=== PATIENT | male | born 1940 | race Asian ===

== ENCOUNTER 2018-08-21 09:30 | Outpatient (RCR) | payer MEDICARE, OTHER, SELFPAY ==
--- NOTE | 2018-08-12 07:41 | PT.OIE ---
Current Diagnoses Parkinson's disease (08/11/18) Provider Visit Care Team Role Provider Type Mark Ramsey MD Family Provider Physician Primary Care Provider Specialty: Family Practice Address: [address] [place], [address] Email: Cleopatra Ontiveros MD Attending Provider Non-Staff Specialty: Neurology Address: [facility] [place], [address] Email: Physical Therapy Initial Evaluation PT-OP-A Visit Information Start: 08/11/18 13:31 Freq: Status: Active Protocol: Document 08/11/18 09:30 AMB (Rec: 08/11/18 13:40 AMB [email or web address]) Out-Patient Physical Therapy Visit Information Visit Information Visit Type Initial Evaluation Visit Note G code 11/20 Visit Start Time 09:30 Visit Stop Time 10:30 Total Visit Minutes 60 Visit Number 1 Evaluation Information Evaluation Date 08/11/18 PT-OP-B Current Condition Start: 08/11/18 13:31 Freq: Status: Active Protocol: Document 08/11/18 09:30 AMB (Rec: 08/11/18 13:40 AMB [email or web address]) Current Condition History of Current Condition History of Current Condition The patient has been diagnosed with Parkinson's since 2016, noticing it mostly in the legs L>R. He lives with his and reports he is independent with all ADLs, he ambulates without asstive device. He does have some cardiac history with an ablation about 15 years ago with some residual shortness of breath. Otherwise he feels he is healthy. Prior Functional Status Baseline Function- ADL's Independent Baseline Function- Mobility Independent Baseline Function- Gait self reported mild SOB Personal Factors Other Personal Factors That May Effect Pt feels he is doing quite Therapy/Recovery well PT-OP-C Subjective Start: 08/11/18 13:31 Freq: Status: Active Protocol: Document 08/11/18 09:30 AMB (Rec: 08/12/18 07:34 AMB [email or web address]) OP-PT Subjective Patient Comments Patient Comments Pt states he is doing quite well, maybe his balance is not as good as it used to be. OP-PT Pain Assessment Comments Pain Comments Bilateral knee throbbing that comes and goes in the morning before getting out of bed, better with movement. PT-OP-D Balance Start: 08/11/18 13:31 Freq: Status: Active Protocol: Document 08/11/18 09:30 AMB (Rec: 08/11/18 16:14 AMB [email or web address]) Balance Tests Single Limb Standing Single Limb- Right 2 seconds Single Limb- Left 2 seconds Tandem Tandem Standing ankle sway with eyes closed 5 seconds PT-OP-E Functional Tests Start: 08/11/18 13:31 Freq: Status: Active Protocol: Document 08/11/18 09:30 AMB (Rec: 08/11/18 16:12 AMB [email or web address]) Functional Tests 6 Minute Walk Test Distance 1738 Device Used none Five Times Sit to Stand Test Score 7 seconds PT-OP-G Mobility & Gait Start: 08/11/18 13:31 Freq: Status: Active Protocol: Document 08/11/18 09:30 AMB (Rec: 08/12/18 07:34 AMB [email or web address]) OP Mobility Evaluation Bed Mobility Supine to and from Sit Independent OP Gait Assessment Comments Gait Comments Pt ambulates without AD. Good danette but decreased trunk rotation. PT-OP-H Neuro Start: 08/11/18 13:31 Freq: Status: Active Protocol: Document 08/11/18 09:30 AMB (Rec: 08/12/18 07:34 AMB [email or web address]) Coordination Evaluation Upper Extremity Tests Left Pronation/Supination Test Normal Performance Muscle Tone Tone Assessment Right Lower Extremity Flexor Tone Description Rigidity Left Lower Extremity Flexor Tone Description Rigidity Muscle Tone Comments No tremors, no clonus, rigidity worse on the left with hip, knee flexion PT-OP-J Posture/Palpation/Skin Start: 08/11/18 13:31 Freq: Status: Active Protocol: Document 08/11/18 09:30 AMB (Rec: 08/12/18 07:34 AMB [email or web address]) Posture Evaluation Comments Posture Comments Forward head, rounded shoulders. PT-OP-M Strength Start: 08/12/18 07:34 Freq: Status: Active Protocol: Document 08/11/18 09:30 AMB (Rec: 08/12/18 07:41 AMB [email or web address]) Hip Strength Hip Manual Muscle Testing Right Flexion (L2) 4+ Good+ Extension (S1) 4+ Good+ Abduction 4+ Good+ Left Flexion (L2) 4+ Good+ Extension (S1) 4+ Good+ Abduction 4+ Good+ Knee Strength Knee Manual Muscle Testing Right Flexion (S2) 5 Normal Extension (L3) 5 Normal Left Flexion (S2) 5 Normal Extension (L3) 5 Normal Ankle/Foot Strength Ankle and Foot Manual Muscle Testing Right Dorsiflexion (L4) 4+ Good+ Plantarflexion (S1) 4+ Good+ Left Dorsiflexion (L4) 4+ Good+ Plantarflexion (S1) 4+ Good+ PT-OP-Q Treatments Start: 08/11/18 13:31 Freq: Status: Active Protocol: Document 08/11/18 09:30 AMB (Rec: 08/11/18 16:10 AMB [email or web address]) Neuro Re-Education Treatment Balance Activities 2 Details Backward stepping with altenrating UE movement 1 Details Forward stepping with alternating UE movement PT-OP-T Assessment and Plan Start: 08/11/18 13:31 Freq: Status: Active Protocol: Document 08/11/18 09:30 AMB (Rec: 08/11/18 16:07 AMB [email or web address]) Physical Therapy Assessment Rehab Potential Rehabilitation Potential Good Evaluation Complexity Number of Personal Factors/Comorbidities 1-2 Number of Body Systems Impaired 1-2 Clinical Presentation at Evaluation Stable Impairments Impairments Balance Coordination Goals Two Impairment Coordination Short Term Goal (STG) The patient will be independent with his LSVT HEP. STG Duration 2 weeks Mcfp Goal (LTG) The patient will show appropriate dual tasking and alternating movement patterns in day to day tasks. LTG Duration 4 weeks One Impairment Balance Short Term Goal (STG) The patient will improve his single leg balance to 5 seconds bilaterally. STG Duration 2 weeks Educational Technologist Goal (LTG) The patient will score 24/24 on the DGI. LTG Duration 4 weeks Assessment Summary Assessment The patient's 6 minute walk test and 5x sit to stand were within functional limits. His high level balance and coordination was impaired. He does have tone and stiffness in his bilateral LEs worse in the left. He feels that his fine motor and UE function is WFL. He will benefit from the LSVT program to improve his dynamic balance, posture, and coordination. Physical Therapy Plan Frequency and Duration Frequency of Treatment 4x/Week Duration of Treatment 4 weeks Plan of Care Start Date 08/11/18 Plan of Care End Date 09/08/18 Therapeutic Interventions Therapeutic Interventions Balance Training Gait Training Home Exercise Program Neuromuscular Re-education Self-Care/Home Management Therapeutic Activities Therapeutic Exercises Next Visit Focus/Plan Next Note Type Treatment Note Next Visit Plan LSVT BIG
--- NOTE | 2018-08-12 07:42 | PT.OPPOC ---
Current Diagnoses Parkinson's disease (08/11/18) Provider Visit Care Team Role Provider Type Mark Ramsey MD Family Provider Physician Primary Care Provider Specialty: Family Practice Address: [address] [place], [address] Email: Cleopatra Ontiveros MD Attending Provider Non-Staff Specialty: Neurology Address: [facility] [place], [address] Email: Plan Of Care PT-OP-T Assessment and Plan Start: 08/11/18 13:31 Freq: Status: Active Protocol: Document 08/11/18 09:30 AMB (Rec: 08/11/18 16:07 AMB [email or web address]) Physical Therapy Assessment Rehab Potential Rehabilitation Potential Good Evaluation Complexity Number of Personal Factors/Comorbidities 1-2 Number of Body Systems Impaired 1-2 Clinical Presentation at Evaluation Stable Impairments Impairments Balance Coordination Goals Two Impairment Coordination Short Term Goal (STG) The patient will be independent with his LSVT HEP. STG Duration 2 weeks Alf Goal (LTG) The patient will show appropriate dual tasking and alternating movement patterns in day to day tasks. LTG Duration 4 weeks One Impairment Balance Short Term Goal (STG) The patient will improve his single leg balance to 5 seconds bilaterally. STG Duration 2 weeks Alf Goal (LTG) The patient will score 24/24 on the DGI. LTG Duration 4 weeks Assessment Summary Assessment The patient's 6 minute walk test and 5x sit to stand were within functional limits. His high level balance and coordination was impaired. He does have tone and stiffness in his bilateral LEs worse in the left. He feels that his fine motor and UE function is WFL. He will benefit from the LSVT program to improve his dynamic balance, posture, and coordination. Physical Therapy Plan Frequency and Duration Frequency of Treatment 4x/Week Duration of Treatment 4 weeks Plan of Care Start Date 08/11/18 Plan of Care End Date 09/08/18 Therapeutic Interventions Therapeutic Interventions Balance Training Gait Training Home Exercise Program Neuromuscular Re-education Self-Care/Home Management Therapeutic Activities Therapeutic Exercises Next Visit Focus/Plan Next Note Type Treatment Note Next Visit Plan LSVT BIG Plan of Care Dates Plan of Care Start Date 08/11/18 Plan of Care End Date 09/08/18 Please Sign and Return: I have reviewed this Plan of Care and certify that the skilled therapy services above are required to meet the patient?s needs. Physician Signature Date Printed Name and Credentials Clinical Instructor Signature Printed Name and Credentials
--- NOTE | 2018-08-12 16:30 | PT.OTN ---
Current Diagnoses Parkinson's disease (08/12/18) Physical Therapy Treatment Note PT-OP-A Visit Information Start: 08/11/18 13:31 Freq: Status: Active Protocol: Document 08/12/18 09:30 AMB (Rec: 08/12/18 10:28 AMB [id number]) Out-Patient Physical Therapy Visit Information Visit Information Visit Type Treatment Note Visit Note 12/21 Visit Start Time 09:30 Visit Stop Time 10:30 Total Visit Minutes 60 Visit Number 2 PT-OP-B Current Condition Start: 08/11/18 13:31 Freq: Status: Active Protocol: Document 08/11/18 09:30 AMB (Rec: 08/11/18 13:40 AMB [email or web address]) Current Condition History of Current Condition History of Current Condition The patient has been diagnosed with Parkinson's since 2015, noticing it mostly in the legs L>R. He lives with his and reports he is independent with all ADLs, he ambulates without assitive device. He does have some cardiac history with an ablation about 15 years ago with some residual shortness of breath. Otherwise he feels he is healthy. Prior Functional Status Baseline Function- ADL's Independent Baseline Function- Mobility Independent Baseline Function- Gait self reported mild SOB Personal Factors Other Personal Factors That May Effect Pt feels he is doing quite Therapy/Recovery well PT-OP-C Subjective Start: 08/11/18 13:31 Freq: Status: Active Protocol: Document 08/12/18 09:30 AMB (Rec: 08/12/18 10:28 AMB [email or web address]) OP-PT Subjective Patient Comments Patient Comments Pt notes R shoulder is a little sore, he did get PT for it earlier this year. PT-OP-D Balance Start: 08/11/18 13:31 Freq: Status: Active Protocol: Document 08/11/18 09:30 AMB (Rec: 08/11/18 16:14 AMB [email or web address]) Balance Tests Single Limb Standing Single Limb- Right 2 seconds Single Limb- Left 2 seconds Tandem Tandem Standing ankle sway with eyes closed 5 seconds PT-OP-E Functional Tests Start: 08/11/18 13:31 Freq: Status: Active Protocol: Document 08/11/18 09:30 AMB (Rec: 08/11/18 16:12 AMB [email or web address]) Functional Tests 6 Minute Walk Test Distance 1738 Device Used none Five Times Sit to Stand Test Score 7 seconds PT-OP-G Mobility & Gait Start: 08/11/18 13:31 Freq: Status: Active Protocol: Document 08/11/18 09:30 AMB (Rec: 08/12/18 07:34 AMB [email or web address]) OP Mobility Evaluation Bed Mobility Supine to and from Sit Independent OP Gait Assessment Comments Gait Comments Pt ambulates without AD. Good danette but decreased trunk rotation. PT-OP-H Neuro Start: 08/11/18 13:31 Freq: Status: Active Protocol: Document 08/11/18 09:30 AMB (Rec: 08/12/18 07:34 AMB [email or web address]) Coordination Evaluation Upper Extremity Tests Left Pronation/Supination Test Normal Performance Muscle Tone Tone Assessment Right Lower Extremity Flexor Tone Description Rigidity Left Lower Extremity Flexor Tone Description Rigidity Muscle Tone Comments No tremors, no clonus, rigidity worse on the left with hip, knee flexion PT-OP-J Posture/Palpation/Skin Start: 08/11/18 13:31 Freq: Status: Active Protocol: Document 08/11/18 09:30 AMB (Rec: 08/12/18 07:34 AMB [email or web address]) Posture Evaluation Comments Posture Comments Forward head, rounded shoulders. PT-OP-M Strength Start: 08/12/18 07:34 Freq: Status: Active Protocol: Document 08/11/18 09:30 AMB (Rec: 08/12/18 07:41 AMB [email or web address]) Hip Strength Hip Manual Muscle Testing Right Flexion (L2) 4+ Good+ Extension (S1) 4+ Good+ Abduction 4+ Good+ Left Flexion (L2) 4+ Good+ Extension (S1) 4+ Good+ Abduction 4+ Good+ Knee Strength Knee Manual Muscle Testing Right Flexion (S2) 5 Normal Extension (L3) 5 Normal Left Flexion (S2) 5 Normal Extension (L3) 5 Normal Ankle/Foot Strength Ankle and Foot Manual Muscle Testing Right Dorsiflexion (L4) 4+ Good+ Plantarflexion (S1) 4+ Good+ Left Dorsiflexion (L4) 4+ Good+ Plantarflexion (S1) 4+ Good+ PT-OP-Q Treatments Start: 08/11/18 13:31 Freq: Status: Active Protocol: Document 08/12/18 09:30 AMB (Rec: 08/12/18 16:30 AMB [email or web address]) Gym Equipment Shuttle Balance 1 Details RED Comments difficult, pt tends to WB on heels and lose balance posteriorly Neuro Re-Education Treatment Balance Activities 6 Details single leg stance Reps/Duration 3 sec max, better with cues to spot 5 Details WBOS Comments trunk rotation 4 Details Rock and reach 3 Details Side stepping Comments no Ue support 2 Details Backward stepping with alternating UE movement Comments no UE support 1 Details Forward stepping with alternating UE movement Comments no UE support Coordination Activities 2 Details Seated trunk rotation with UE reach Reps/Duration 10 1 Details Seated forward flexion with horizontal abduction Reps/Duration 10 Other Activities 1 Details sit to stand Reps/Duration 10 Comments blue foam PT-OP-T Assessment and Plan Start: 08/11/18 13:31 Freq: Status: Active Protocol: Document 08/12/18 09:30 AMB (Rec: 08/12/18 10:30 AMB [email or web address]) Physical Therapy Assessment Assessment Summary Assessment Pt did well with DGI, vc to slow down with exercises for better form. Physical Therapy Plan Next Visit Focus/Plan Next Note Type Treatment Note Next Visit Plan Progress dynamic balance
--- NOTE | 2018-08-13 10:43 | PT.OTN ---
Current Diagnoses Parkinson's disease (08/13/18) Physical Therapy Treatment Note PT-OP-A Visit Information Start: 08/11/18 13:31 Freq: Status: Active Protocol: Document 08/13/18 09:30 AMB (Rec: 08/13/18 10:42 AMB [email or web address]) Out-Patient Physical Therapy Visit Information Visit Information Visit Type Treatment Note Visit Note 01/18 Visit Start Time 09:45 Visit Stop Time 10:30 Total Visit Minutes 45 Visit Number 3 Evaluation Information Evaluation Date 08/11/18 PT-OP-B Current Condition Start: 08/11/18 13:31 Freq: Status: Active Protocol: Document 08/11/18 09:30 AMB (Rec: 08/11/18 13:40 AMB [email or web address]) Current Condition History of Current Condition History of Current Condition The patient has been diagnosed with Parkinson's since 2015, noticing it mostly in the legs L>R. He lives with his and reports he is independent with all ADLs, he ambulates without asstive device. He does have some cardiac history with an ablation about 15 years ago with some residual shortness of breath. Otherwise he feels he is healthy. Prior Functional Status Baseline Function- ADL's Independent Baseline Function- Mobility Independent Baseline Function- Gait self reported mild SOB Personal Factors Other Personal Factors That May Effect Pt feels he is doing quite Therapy/Recovery well PT-OP-C Subjective Start: 08/11/18 13:31 Freq: Status: Active Protocol: Document 08/13/18 09:30 AMB (Rec: 08/13/18 10:42 AMB [email or web address]) OP-PT Subjective Patient Comments Patient Comments Pt notes knees are a little sore from exercises yesterday. PT-OP-D Balance Start: 08/11/18 13:31 Freq: Status: Active Protocol: Document 08/11/18 09:30 AMB (Rec: 08/11/18 16:14 AMB [email or web address]) Balance Tests Single Limb Standing Single Limb- Right 2 seconds Single Limb- Left 2 seconds Tandem Tandem Standing ankle sway with eyes closed 5 seconds PT-OP-E Functional Tests Start: 08/11/18 13:31 Freq: Status: Active Protocol: Document 08/11/18 09:30 AMB (Rec: 08/11/18 16:12 AMB [email or web address]) Functional Tests 6 Minute Walk Test Distance 1738 Device Used none Five Times Sit to Stand Test Score 7 seconds PT-OP-G Mobility & Gait Start: 08/11/18 13:31 Freq: Status: Active Protocol: Document 08/11/18 09:30 AMB (Rec: 08/12/18 07:34 AMB [email or web address]) OP Mobility Evaluation Bed Mobility Supine to and from Sit Independent OP Gait Assessment Comments Gait Comments Pt ambulates without AD. Good danette but decreased trunk rotation. PT-OP-H Neuro Start: 08/11/18 13:31 Freq: Status: Active Protocol: Document 08/11/18 09:30 AMB (Rec: 08/12/18 07:34 AMB [email or web address]) Coordination Evaluation Upper Extremity Tests Left Pronation/Supination Test Normal Performance Muscle Tone Tone Assessment Right Lower Extremity Flexor Tone Description Rigidity Left Lower Extremity Flexor Tone Description Rigidity Muscle Tone Comments No tremors, no clonus, rigidity worse on the left with hip, knee flexion PT-OP-J Posture/Palpation/Skin Start: 08/11/18 13:31 Freq: Status: Active Protocol: Document 08/11/18 09:30 AMB (Rec: 08/12/18 07:34 AMB [email or web address]) Posture Evaluation Comments Posture Comments Forward head, rounded shoulders. PT-OP-M Strength Start: 08/12/18 07:34 Freq: Status: Active Protocol: Document 08/11/18 09:30 AMB (Rec: 08/12/18 07:41 AMB [email or web address]) Hip Strength Hip Manual Muscle Testing Right Flexion (L2) 4+ Good+ Extension (S1) 4+ Good+ Abduction 4+ Good+ Left Flexion (L2) 4+ Good+ Extension (S1) 4+ Good+ Abduction 4+ Good+ Knee Strength Knee Manual Muscle Testing Right Flexion (S2) 5 Normal Extension (L3) 5 Normal Left Flexion (S2) 5 Normal Extension (L3) 5 Normal Ankle/Foot Strength Ankle and Foot Manual Muscle Testing Right Dorsiflexion (L4) 4+ Good+ Plantarflexion (S1) 4+ Good+ Left Dorsiflexion (L4) 4+ Good+ Plantarflexion (S1) 4+ Good+ PT-OP-Q Treatments Start: 08/11/18 13:31 Freq: Status: Active Protocol: Document 08/13/18 09:30 AMB (Rec: 08/13/18 10:42 AMB [email or web address]) Gym Equipment Shuttle Balance 1 Details RED Comments difficult, pt tends to WB on heels and lose balance posteriorly Therapeutic Activity Therapeutic Activity 1 Name handwriting Comments lined paper, forearm support , large pen, taking breaks to stretch out hand. Neuro Re-Education Treatment Balance Activities 6 Details single leg stance Reps/Duration 3 sec max, better with cues to spot Comments added vertical head turns 5 Details WBOS Comments trunk rotation 4 Details Rock and reach Reps/Duration 12x2 3 Details Side stepping Reps/Duration 10x2 Comments no Ue support 2 Details Backward stepping with alternating UE movement Reps/Duration 10x2 Comments no UE support 1 Details Forward stepping with alternating UE movement Reps/Duration 10x2 Comments no UE support Coordination Activities 2 Details Seated trunk rotation with UE reach Reps/Duration 10 1 Details Seated forward flexion with horizontal abduction Reps/Duration 10 Other Activities 1 Details sit to stand Reps/Duration 10 Comments blue foam, from low surface PT-OP-T Assessment and Plan Start: 08/11/18 13:31 Freq: Status: Active Protocol: Document 08/13/18 09:30 AMB (Rec: 08/13/18 10:42 AMB [email or web address]) Physical Therapy Assessment Assessment Summary Assessment Pt has noticed decreased size of writing if he writes for awhile, advised in compensation techniques. Improving dynamic balance. Physical Therapy Plan Frequency and Duration Frequency of Treatment 4x/Week Duration of Treatment 4 weeks Plan of Care Start Date 08/11/18 Plan of Care End Date 09/08/18 Next Visit Focus/Plan Next Note Type Treatment Note Next Visit Plan Progress balance, fine motor
--- NOTE | 2018-08-14 15:55 | PT.OTN ---
Current Diagnoses Parkinson's disease (08/14/18) Physical Therapy Treatment Note PT-OP-A Visit Information Start: 08/11/18 13:31 Freq: Status: Active Protocol: Document 08/14/18 09:30 AMB (Rec: 08/14/18 09:35 AMB [email or web address]) Out-Patient Physical Therapy Visit Information Visit Information Visit Type Treatment Note Visit Note 02/18 Visit Start Time 09:30 Visit Stop Time 10:30 Total Visit Minutes 60 Visit Number 4 PT-OP-B Current Condition Start: 08/11/18 13:31 Freq: Status: Active Protocol: Document 08/11/18 09:30 AMB (Rec: 08/11/18 13:40 AMB [email or web address]) Current Condition History of Current Condition History of Current Condition The patient has been diagnosed with Parkinson's since 2015, noticing it mostly in the legs L>R. He lives with his and reports he is independent with all ADLs, he ambulates without asstive device. He does have some cardiac history with an ablation about 15 years ago with some residual shortness of breath. Otherwise he feels he is healthy. Prior Functional Status Baseline Function- ADL's Independent Baseline Function- Mobility Independent Baseline Function- Gait self reported mild SOB Personal Factors Other Personal Factors That May Effect Pt feels he is doing quite Therapy/Recovery well PT-OP-C Subjective Start: 08/11/18 13:31 Freq: Status: Active Protocol: Document 08/14/18 09:30 AMB (Rec: 08/14/18 09:35 AMB [email or web address]) OP-PT Subjective Patient Comments Patient Comments Pt notes lower leg issues have not been as bad as far as waking up early. PT-OP-D Balance Start: 08/11/18 13:31 Freq: Status: Active Protocol: Document 08/11/18 09:30 AMB (Rec: 08/11/18 16:14 AMB [email or web address]) Balance Tests Single Limb Standing Single Limb- Right 2 seconds Single Limb- Left 2 seconds Tandem Tandem Standing ankle sway with eyes closed 5 seconds PT-OP-E Functional Tests Start: 08/11/18 13:31 Freq: Status: Active Protocol: Document 08/11/18 09:30 AMB (Rec: 08/11/18 16:12 AMB [email or web address]) Functional Tests 6 Minute Walk Test Distance 1738 Device Used none Five Times Sit to Stand Test Score 7 seconds PT-OP-G Mobility & Gait Start: 08/11/18 13:31 Freq: Status: Active Protocol: Document 08/11/18 09:30 AMB (Rec: 08/12/18 07:34 AMB [email or web address]) OP Mobility Evaluation Bed Mobility Supine to and from Sit Independent OP Gait Assessment Comments Gait Comments Pt ambulates without AD. Good danette but decreased trunk rotation. PT-OP-H Neuro Start: 08/11/18 13:31 Freq: Status: Active Protocol: Document 08/11/18 09:30 AMB (Rec: 08/12/18 07:34 AMB [email or web address]) Coordination Evaluation Upper Extremity Tests Left Pronation/Supination Test Normal Performance Muscle Tone Tone Assessment Right Lower Extremity Flexor Tone Description Rigidity Left Lower Extremity Flexor Tone Description Rigidity Muscle Tone Comments No tremors, no clonus, rigidity worse on the left with hip, knee flexion PT-OP-J Posture/Palpation/Skin Start: 08/11/18 13:31 Freq: Status: Active Protocol: Document 08/11/18 09:30 AMB (Rec: 08/12/18 07:34 AMB [email or web address]) Posture Evaluation Comments Posture Comments Forward head, rounded shoulders. PT-OP-M Strength Start: 08/12/18 07:34 Freq: Status: Active Protocol: Document 08/11/18 09:30 AMB (Rec: 08/12/18 07:41 AMB [email or web address]) Hip Strength Hip Manual Muscle Testing Right Flexion (L2) 4+ Good+ Extension (S1) 4+ Good+ Abduction 4+ Good+ Left Flexion (L2) 4+ Good+ Extension (S1) 4+ Good+ Abduction 4+ Good+ Knee Strength Knee Manual Muscle Testing Right Flexion (S2) 5 Normal Extension (L3) 5 Normal Left Flexion (S2) 5 Normal Extension (L3) 5 Normal Ankle/Foot Strength Ankle and Foot Manual Muscle Testing Right Dorsiflexion (L4) 4+ Good+ Plantarflexion (S1) 4+ Good+ Left Dorsiflexion (L4) 4+ Good+ Plantarflexion (S1) 4+ Good+ PT-OP-Q Treatments Start: 08/11/18 13:31 Freq: Status: Active Protocol: Document 08/14/18 09:30 AMB (Rec: 08/14/18 15:50 AMB [email or web address]) Gym Equipment Shuttle Balance 1 Details RED Comments difficult, pt tends to WB on heels and lose balance posteriorly Therapeutic Exercises Standing Exercises 2 Standing Exercise Name calf stretch Reps/Minutes 30x2 1 Standing Exercise Name pec stretch/doorway Reps/Minutes 30x2 Neuro Re-Education Treatment Balance Activities 6 Details single leg stance Reps/Duration 3 sec max, better with cues to spot Comments added vertical head turns 5 Details WBOS Comments trunk rotation 4 Details Rock and reach Reps/Duration 12x2 3 Details Side stepping Reps/Duration 10x2 Comments no Ue support 2 Details Backward stepping with alternating UE movement Reps/Duration 10x2 Comments no UE support 1 Details Forward stepping with alternating UE movement Reps/Duration 10x2 Comments no UE support Coordination Activities 2 Details Seated trunk rotation with UE reach Reps/Duration 10 1 Details Seated forward flexion with horizontal abduction Reps/Duration 10 Other Activities 1 Details sit to stand Reps/Duration 10 Comments blue foam, from low surface PT-OP-T Assessment and Plan Start: 08/11/18 13:31 Freq: Status: Active Protocol: Document 08/14/18 09:30 AMB (Rec: 08/14/18 15:50 AMB [email or web address]) Physical Therapy Assessment Goals Two Impairment Coordination Short Term Goal (STG) The patient will be independent with his LSVT HEP. STG Duration 2 weeks Senior Living Goal (LTG) The patient will show appropriate dual tasking and alternating movement patterns in day to day tasks. LTG Duration 4 weeks One Impairment Balance Short Term Goal (STG) The patient will improve his single leg balance to 5 seconds bilaterally. STG Duration 2 weeks [employer] Goal (LTG) The patient will score 24/24 on the DGI. LTG Duration 4 weeks Assessment Summary Assessment Pt showing improvement in single leg balance. Physical Therapy Plan Next Visit Focus/Plan Next Note Type Treatment Note Next Visit Plan Progress challenge of ther ex
--- NOTE | 2018-08-18 10:57 | PT.OTN ---
Current Diagnoses Parkinson's disease (08/18/18) Physical Therapy Treatment Note PT-OP-A Visit Information Start: 08/11/18 13:31 Freq: Status: Active Protocol: Document 08/18/18 09:30 AMB (Rec: 08/18/18 10:57 AMB [email or web address]) Out-Patient Physical Therapy Visit Information Visit Information Visit Type Treatment Note Visit Note 03/20 Visit Start Time 09:30 Visit Stop Time 10:30 Total Visit Minutes 60 Visit Number 5 PT-OP-B Current Condition Start: 08/11/18 13:31 Freq: Status: Active Protocol: Document 08/11/18 09:30 AMB (Rec: 08/11/18 13:40 AMB [email or web address]) Current Condition History of Current Condition History of Current Condition The patient has been diagnosed with Parkinson's since 2015, noticing it mostly in the legs L>R. He lives with his and reports he is independent with all ADLs, he ambulates without asstive device. He does have some cardiac history with an ablation about 15 years ago with some residual shortness of breath. Otherwise he feels he is healthy. Prior Functional Status Baseline Function- ADL's Independent Baseline Function- Mobility Independent Baseline Function- Gait self reported mild SOB Personal Factors Other Personal Factors That May Effect Pt feels he is doing quite Therapy/Recovery well PT-OP-C Subjective Start: 08/11/18 13:31 Freq: Status: Active Protocol: Document 08/18/18 09:30 AMB (Rec: 08/18/18 10:57 AMB [email or web address]) OP-PT Subjective Patient Comments Patient Comments Pt states he has been doing his exercise, he is continuing with his stretches. PT-OP-D Balance Start: 08/11/18 13:31 Freq: Status: Active Protocol: Document 08/11/18 09:30 AMB (Rec: 08/11/18 16:14 AMB [email or web address]) Balance Tests Single Limb Standing Single Limb- Right 2 seconds Single Limb- Left 2 seconds Tandem Tandem Standing ankle sway with eyes closed 5 seconds PT-OP-E Functional Tests Start: 08/11/18 13:31 Freq: Status: Active Protocol: Document 08/11/18 09:30 AMB (Rec: 08/11/18 16:12 AMB [email or web address]) Functional Tests 6 Minute Walk Test Distance 1738 Device Used none Five Times Sit to Stand Test Score 7 seconds PT-OP-G Mobility & Gait Start: 08/11/18 13:31 Freq: Status: Active Protocol: Document 08/11/18 09:30 AMB (Rec: 08/12/18 07:34 AMB [email or web address]) OP Mobility Evaluation Bed Mobility Supine to and from Sit Independent OP Gait Assessment Comments Gait Comments Pt ambulates without AD. Good danette but decreased trunk rotation. PT-OP-H Neuro Start: 08/11/18 13:31 Freq: Status: Active Protocol: Document 08/11/18 09:30 AMB (Rec: 08/12/18 07:34 AMB [email or web address]) Coordination Evaluation Upper Extremity Tests Left Pronation/Supination Test Normal Performance Muscle Tone Tone Assessment Right Lower Extremity Flexor Tone Description Rigidity Left Lower Extremity Flexor Tone Description Rigidity Muscle Tone Comments No tremors, no clonus, rigidity worse on the left with hip, knee flexion PT-OP-J Posture/Palpation/Skin Start: 08/11/18 13:31 Freq: Status: Active Protocol: Document 08/11/18 09:30 AMB (Rec: 08/12/18 07:34 AMB [email or web address]) Posture Evaluation Comments Posture Comments Forward head, rounded shoulders. PT-OP-M Strength Start: 08/12/18 07:34 Freq: Status: Active Protocol: Document 08/11/18 09:30 AMB (Rec: 08/12/18 07:41 AMB [email or web address]) Hip Strength Hip Manual Muscle Testing Right Flexion (L2) 4+ Good+ Extension (S1) 4+ Good+ Abduction 4+ Good+ Left Flexion (L2) 4+ Good+ Extension (S1) 4+ Good+ Abduction 4+ Good+ Knee Strength Knee Manual Muscle Testing Right Flexion (S2) 5 Normal Extension (L3) 5 Normal Left Flexion (S2) 5 Normal Extension (L3) 5 Normal Ankle/Foot Strength Ankle and Foot Manual Muscle Testing Right Dorsiflexion (L4) 4+ Good+ Plantarflexion (S1) 4+ Good+ Left Dorsiflexion (L4) 4+ Good+ Plantarflexion (S1) 4+ Good+ PT-OP-Q Treatments Start: 08/11/18 13:31 Freq: Status: Active Protocol: Document 08/18/18 09:30 AMB (Rec: 08/18/18 10:57 AMB [email or web address]) Gym Equipment Shuttle Balance 1 Details RED Comments WBOS head turns. Eyes closed. Therapeutic Exercises Standing Exercises 2 Standing Exercise Name calf stretch Reps/Minutes 30x2 1 Standing Exercise Name pec stretch/doorway Reps/Minutes 30x2 Neuro Re-Education Treatment Balance Activities 6 Details single leg stance Reps/Duration 3 sec max, better with cues to spot Comments added vertical head turns and horizontal 5 Details WBOS Comments trunk rotation 4 Details Rock and reach Reps/Duration 12x2 Comments added 1# wrist weights 3 Details Side stepping Reps/Duration 10x2 Comments no Ue support 2 Details Backward stepping with alternating UE movement Reps/Duration 10x2 Comments no UE support 1 Details Forward stepping with alternating UE movement Reps/Duration 10x2 Comments no UE support Coordination Activities 2 Details Seated trunk rotation with UE reach Reps/Duration 10 1 Details Seated forward flexion with horizontal abduction Reps/Duration 10 Other Activities 1 Details sit to stand Reps/Duration 10 Comments blue foam, from low surface PT-OP-T Assessment and Plan Start: 08/11/18 13:31 Freq: Status: Active Protocol: Document 08/18/18 09:30 AMB (Rec: 08/18/18 10:57 AMB [email or web address]) Physical Therapy Assessment Assessment Summary Assessment Pt tolerated increased resistance well. Physical Therapy Plan Next Visit Focus/Plan Next Note Type Treatment Note Next Visit Plan Progress challenge of ther ex
--- NOTE | 2018-08-19 15:16 | PT.OTN ---
Current Diagnoses Parkinson's disease (08/19/18) Physical Therapy Treatment Note PT-OP-A Visit Information Start: 08/11/18 13:31 Freq: Status: Active Protocol: Document 08/19/18 09:30 AMB (Rec: 08/19/18 12:59 AMB [email or web address]) Out-Patient Physical Therapy Visit Information Visit Information Visit Type Treatment Note Visit Note 04/20 Visit Start Time 09:30 Visit Stop Time 10:30 Total Visit Minutes 60 Visit Number 6 PT-OP-B Current Condition Start: 08/11/18 13:31 Freq: Status: Active Protocol: Document 08/11/18 09:30 AMB (Rec: 08/11/18 13:40 AMB [email or web address]) Current Condition History of Current Condition History of Current Condition The patient has been diagnosed with Parkinson's since 2015, noticing it mostly in the legs L>R. He lives with his and reports he is independent with all ADLs, he ambulates without asstive device. He does have some cardiac history with an ablation about 15 years ago with some residual shortness of breath. Otherwise he feels he is healthy. Prior Functional Status Baseline Function- ADL's Independent Baseline Function- Mobility Independent Baseline Function- Gait self reported mild SOB Personal Factors Other Personal Factors That May Effect Pt feels he is doing quite Therapy/Recovery well PT-OP-C Subjective Start: 08/11/18 13:31 Freq: Status: Active Protocol: Document 08/19/18 09:30 AMB (Rec: 08/19/18 12:59 AMB [email or web address]) OP-PT Subjective Patient Comments Patient Comments Pt states he is doing well PT-OP-D Balance Start: 08/11/18 13:31 Freq: Status: Active Protocol: Document 08/11/18 09:30 AMB (Rec: 08/11/18 16:14 AMB [email or web address]) Balance Tests Single Limb Standing Single Limb- Right 2 seconds Single Limb- Left 2 seconds Tandem Tandem Standing ankle sway with eyes closed 5 seconds PT-OP-E Functional Tests Start: 08/11/18 13:31 Freq: Status: Active Protocol: Document 08/11/18 09:30 AMB (Rec: 08/11/18 16:12 AMB [email or web address]) Functional Tests 6 Minute Walk Test Distance 1738 Device Used none Five Times Sit to Stand Test Score 7 seconds PT-OP-G Mobility & Gait Start: 08/11/18 13:31 Freq: Status: Active Protocol: Document 08/11/18 09:30 AMB (Rec: 08/12/18 07:34 AMB [email or web address]) OP Mobility Evaluation Bed Mobility Supine to and from Sit Independent OP Gait Assessment Comments Gait Comments Pt ambulates without AD. Good danette but decreased trunk rotation. PT-OP-H Neuro Start: 08/11/18 13:31 Freq: Status: Active Protocol: Document 08/11/18 09:30 AMB (Rec: 08/12/18 07:34 AMB [email or web address]) Coordination Evaluation Upper Extremity Tests Left Pronation/Supination Test Normal Performance Muscle Tone Tone Assessment Right Lower Extremity Flexor Tone Description Rigidity Left Lower Extremity Flexor Tone Description Rigidity Muscle Tone Comments No tremors, no clonus, rigidity worse on the left with hip, knee flexion PT-OP-J Posture/Palpation/Skin Start: 08/11/18 13:31 Freq: Status: Active Protocol: Document 08/11/18 09:30 AMB (Rec: 08/12/18 07:34 AMB [email or web address]) Posture Evaluation Comments Posture Comments Forward head, rounded shoulders. PT-OP-M Strength Start: 08/12/18 07:34 Freq: Status: Active Protocol: Document 08/11/18 09:30 AMB (Rec: 08/12/18 07:41 AMB [email or web address]) Hip Strength Hip Manual Muscle Testing Right Flexion (L2) 4+ Good+ Extension (S1) 4+ Good+ Abduction 4+ Good+ Left Flexion (L2) 4+ Good+ Extension (S1) 4+ Good+ Abduction 4+ Good+ Knee Strength Knee Manual Muscle Testing Right Flexion (S2) 5 Normal Extension (L3) 5 Normal Left Flexion (S2) 5 Normal Extension (L3) 5 Normal Ankle/Foot Strength Ankle and Foot Manual Muscle Testing Right Dorsiflexion (L4) 4+ Good+ Plantarflexion (S1) 4+ Good+ Left Dorsiflexion (L4) 4+ Good+ Plantarflexion (S1) 4+ Good+ PT-OP-Q Treatments Start: 08/11/18 13:31 Freq: Status: Active Protocol: Document 08/19/18 09:30 AMB (Rec: 08/19/18 15:16 AMB [email or web address]) Gym Equipment Shuttle Balance 1 Details RED Comments WBOS head turns. Eyes closed. Gait Training Gait Activity 1 Description smooth surfaces Comments arm swing, good heel strike Neuro Re-Education Treatment Balance Activities 6 Details single leg stance Reps/Duration 3 sec max, better with cues to spot Comments added vertical head turns and horizontal 5 Details WBOS Comments trunk rotation 4 Details Rock and reach Reps/Duration 12x2 Comments added 1# wrist weights 3 Details Side stepping Reps/Duration 10x2 Comments no Ue support 2 Details Backward stepping with alternating UE movement Reps/Duration 10x2 Comments no UE support 1 Details Forward stepping with alternating UE movement Reps/Duration 10x2 Comments no UE support Coordination Activities 2 Details Seated trunk rotation with UE reach Reps/Duration 10 1 Details Seated forward flexion with horizontal abduction Reps/Duration 10 Other Activities 1 Details sit to stand Reps/Duration 10 Comments blue foam, from low surface PT-OP-T Assessment and Plan Start: 08/11/18 13:31 Freq: Status: Active Protocol: Document 08/19/18 09:30 AMB (Rec: 08/19/18 15:16 AMB [email or web address]) Physical Therapy Assessment Assessment Summary Assessment Pt with improved sit to stand time, 6MWT within 100' of previous testing. Physical Therapy Plan Next Visit Focus/Plan Next Note Type Treatment Note Next Visit Plan Progress dynamic balance
--- NOTE | 2018-08-20 10:51 | PT.OTN ---
Current Diagnoses Parkinson's disease (08/20/18) Physical Therapy Treatment Note PT-OP-A Visit Information Start: 08/11/18 13:31 Freq: Status: Active Protocol: Document 08/20/18 09:30 AMB (Rec: 08/20/18 10:51 AMB [email or web address]) Out-Patient Physical Therapy Visit Information Visit Information Visit Type Treatment Note Visit Note 04/20 Visit Start Time 09:30 Visit Stop Time 10:30 Total Visit Minutes 60 Visit Number 7 PT-OP-B Current Condition Start: 08/11/18 13:31 Freq: Status: Active Protocol: Document 08/11/18 09:30 AMB (Rec: 08/11/18 13:40 AMB [email or web address]) Current Condition History of Current Condition History of Current Condition The patient has been diagnosed with Parkinson's since 2015, noticing it mostly in the legs L>R. He lives with his and reports he is independent with all ADLs, he ambulates without asstive device. He does have some cardiac history with an ablation about 15 years ago with some residual shortness of breath. Otherwise he feels he is healthy. Prior Functional Status Baseline Function- ADL's Independent Baseline Function- Mobility Independent Baseline Function- Gait self reported mild SOB Personal Factors Other Personal Factors That May Effect Pt feels he is doing quite Therapy/Recovery well PT-OP-C Subjective Start: 08/11/18 13:31 Freq: Status: Active Protocol: Document 08/20/18 09:30 AMB (Rec: 08/20/18 10:51 AMB [email or web address]) OP-PT Subjective Patient Comments Patient Comments The patient states he woke up stiff this morning, a bit tired. PT-OP-D Balance Start: 08/11/18 13:31 Freq: Status: Active Protocol: Document 08/11/18 09:30 AMB (Rec: 08/11/18 16:14 AMB [email or web address]) Balance Tests Single Limb Standing Single Limb- Right 2 seconds Single Limb- Left 2 seconds Tandem Tandem Standing ankle sway with eyes closed 5 seconds PT-OP-E Functional Tests Start: 08/11/18 13:31 Freq: Status: Active Protocol: Document 08/11/18 09:30 AMB (Rec: 08/11/18 16:12 AMB [email or web address]) Functional Tests 6 Minute Walk Test Distance 1738 Device Used none Five Times Sit to Stand Test Score 7 seconds PT-OP-G Mobility & Gait Start: 08/11/18 13:31 Freq: Status: Active Protocol: Document 08/11/18 09:30 AMB (Rec: 08/12/18 07:34 AMB [email or web address]) OP Mobility Evaluation Bed Mobility Supine to and from Sit Independent OP Gait Assessment Comments Gait Comments Pt ambulates without AD. Good danette but decreased trunk rotation. PT-OP-H Neuro Start: 08/11/18 13:31 Freq: Status: Active Protocol: Document 08/11/18 09:30 AMB (Rec: 08/12/18 07:34 AMB [email or web address]) Coordination Evaluation Upper Extremity Tests Left Pronation/Supination Test Normal Performance Muscle Tone Tone Assessment Right Lower Extremity Flexor Tone Description Rigidity Left Lower Extremity Flexor Tone Description Rigidity Muscle Tone Comments No tremors, no clonus, rigidity worse on the left with hip, knee flexion PT-OP-J Posture/Palpation/Skin Start: 08/11/18 13:31 Freq: Status: Active Protocol: Document 08/11/18 09:30 AMB (Rec: 08/12/18 07:34 AMB [email or web address]) Posture Evaluation Comments Posture Comments Forward head, rounded shoulders. PT-OP-M Strength Start: 08/12/18 07:34 Freq: Status: Active Protocol: Document 08/11/18 09:30 AMB (Rec: 08/12/18 07:41 AMB [email or web address]) Hip Strength Hip Manual Muscle Testing Right Flexion (L2) 4+ Good+ Extension (S1) 4+ Good+ Abduction 4+ Good+ Left Flexion (L2) 4+ Good+ Extension (S1) 4+ Good+ Abduction 4+ Good+ Knee Strength Knee Manual Muscle Testing Right Flexion (S2) 5 Normal Extension (L3) 5 Normal Left Flexion (S2) 5 Normal Extension (L3) 5 Normal Ankle/Foot Strength Ankle and Foot Manual Muscle Testing Right Dorsiflexion (L4) 4+ Good+ Plantarflexion (S1) 4+ Good+ Left Dorsiflexion (L4) 4+ Good+ Plantarflexion (S1) 4+ Good+ PT-OP-Q Treatments Start: 08/11/18 13:31 Freq: Status: Active Protocol: Document 08/20/18 09:30 AMB (Rec: 08/20/18 10:51 AMB [email or web address]) Therapeutic Exercises Standing Exercises 3 Standing Exercise Name theraband rows Resistance #3 Reps/Minutes 2x12 2 Standing Exercise Name calf stretch Reps/Minutes 30x2 Neuro Re-Education Treatment Balance Activities 6 Details single leg stance Reps/Duration 3 sec max, better with cues to spot Comments added vertical head turns and horizontal 5 Details WBOS Comments trunk rotation 4 Details Rock and reach Reps/Duration 12x2 Comments added 1# wrist weights 3 Details Side stepping Reps/Duration 10x2 Comments no Ue support 2 Details Backward stepping with alternating UE movement Reps/Duration 10x2 Comments no UE support 1 Details Forward stepping with alternating UE movement Reps/Duration 10x2 Comments no UE support Coordination Activities 2 Details Seated trunk rotation with UE reach Reps/Duration 10 1 Details Seated forward flexion with horizontal abduction Reps/Duration 10 Other Activities 1 Details sit to stand Reps/Duration 10 Comments blue foam, from low surface PT-OP-T Assessment and Plan Start: 08/11/18 13:31 Freq: Status: Active Protocol: Document 08/20/18 09:30 AMB (Rec: 08/20/18 10:51 AMB [email or web address]) Physical Therapy Assessment Goals Two Impairment Coordination Short Term Goal (STG) The patient will be independent with his LSVT HEP. STG Duration [address] Goal (LTG) The patient will show appropriate dual tasking and alternating movement patterns in day to day tasks. LTG Duration 4 weeks One Impairment Balance Short Term Goal (STG) The patient will improve his single leg balance to 5 seconds bilaterally. STG Duration 2 weeks Group Home Goal (LTG) The patient will score 24/24 on the DGI. LTG Duration 4 weeks Assessment Summary Assessment Pt is doing well and consistent with his HEP. Physical Therapy Plan Next Visit Focus/Plan Next Note Type Re-Evaluation
--- NOTE | 2018-08-21 16:28 | PT.OTN ---
Current Diagnoses Parkinson's disease (08/21/18) Physical Therapy Treatment Note PT-OP-A Visit Information Start: 08/11/18 13:31 Freq: Status: Active Protocol: Document 08/21/18 09:30 AMB (Rec: 08/21/18 16:25 AMB [email or web address]) Out-Patient Physical Therapy Visit Information Visit Information Visit Type Treatment Note Visit Note 05/20 Visit Start Time 09:30 Visit Stop Time 10:30 Total Visit Minutes 60 Visit Number 8 PT-OP-B Current Condition Start: 08/11/18 13:31 Freq: Status: Active Protocol: Document 08/11/18 09:30 AMB (Rec: 08/11/18 13:40 AMB [email or web address]) Current Condition History of Current Condition History of Current Condition The patient has been diagnosed with Parkinson's since 2015, noticing it mostly in the legs L>R. He lives with his and reports he is independent with all ADLs, he ambulates without asstive device. He does have some cardiac history with an ablation about 15 years ago with some residual shortness of breath. Otherwise he feels he is healthy. Prior Functional Status Baseline Function- ADL's Independent Baseline Function- Mobility Independent Baseline Function- Gait self reported mild SOB Personal Factors Other Personal Factors That May Effect Pt feels he is doing quite Therapy/Recovery well PT-OP-C Subjective Start: 08/11/18 13:31 Freq: Status: Active Protocol: Document 08/21/18 09:30 AMB (Rec: 08/21/18 16:25 AMB [email or web address]) OP-PT Subjective Patient Comments Patient Comments Pt is feeling well, he is very thankful that his legs are feeling better in the morning. He states he will continue on with his exercises. He is ready to be discharged. PT-OP-D Balance Start: 08/11/18 13:31 Freq: Status: Active Protocol: Document 08/11/18 09:30 AMB (Rec: 08/11/18 16:14 AMB [email or web address]) Balance Tests Single Limb Standing Single Limb- Right 2 seconds Single Limb- Left 2 seconds Tandem Tandem Standing ankle sway with eyes closed 5 seconds PT-OP-E Functional Tests Start: 08/11/18 13:31 Freq: Status: Active Protocol: Document 08/11/18 09:30 AMB (Rec: 08/11/18 16:12 AMB [email or web address]) Functional Tests 6 Minute Walk Test Distance 1738 Device Used none Five Times Sit to Stand Test Score 7 seconds PT-OP-G Mobility & Gait Start: 08/11/18 13:31 Freq: Status: Active Protocol: Document 08/11/18 09:30 AMB (Rec: 08/12/18 07:34 AMB [email or web address]) OP Mobility Evaluation Bed Mobility Supine to and from Sit Independent OP Gait Assessment Comments Gait Comments Pt ambulates without AD. Good danette but decreased trunk rotation. PT-OP-H Neuro Start: 08/11/18 13:31 Freq: Status: Active Protocol: Document 08/11/18 09:30 AMB (Rec: 08/12/18 07:34 AMB [email or web address]) Coordination Evaluation Upper Extremity Tests Left Pronation/Supination Test Normal Performance Muscle Tone Tone Assessment Right Lower Extremity Flexor Tone Description Rigidity Left Lower Extremity Flexor Tone Description Rigidity Muscle Tone Comments No tremors, no clonus, rigidity worse on the left with hip, knee flexion PT-OP-J Posture/Palpation/Skin Start: 08/11/18 13:31 Freq: Status: Active Protocol: Document 08/11/18 09:30 AMB (Rec: 08/12/18 07:34 AMB [email or web address]) Posture Evaluation Comments Posture Comments Forward head, rounded shoulders. PT-OP-M Strength Start: 08/12/18 07:34 Freq: Status: Active Protocol: Document 08/11/18 09:30 AMB (Rec: 08/12/18 07:41 AMB [email or web address]) Hip Strength Hip Manual Muscle Testing Right Flexion (L2) 4+ Good+ Extension (S1) 4+ Good+ Abduction 4+ Good+ Left Flexion (L2) 4+ Good+ Extension (S1) 4+ Good+ Abduction 4+ Good+ Knee Strength Knee Manual Muscle Testing Right Flexion (S2) 5 Normal Extension (L3) 5 Normal Left Flexion (S2) 5 Normal Extension (L3) 5 Normal Ankle/Foot Strength Ankle and Foot Manual Muscle Testing Right Dorsiflexion (L4) 4+ Good+ Plantarflexion (S1) 4+ Good+ Left Dorsiflexion (L4) 4+ Good+ Plantarflexion (S1) 4+ Good+ PT-OP-Q Treatments Start: 08/11/18 13:31 Freq: Status: Active Protocol: Document 08/21/18 09:30 AMB (Rec: 08/21/18 16:25 AMB [email or web address]) Therapeutic Exercises Standing Exercises 2 Standing Exercise Name calf stretch Reps/Minutes 30x2 Neuro Re-Education Treatment Balance Activities 6 Details single leg stance Reps/Duration 6 sec max, better with cues to spot Comments added vertical head turns and horizontal 5 Details WBOS Comments trunk rotation 4 Details Rock and reach Reps/Duration 12x2 Comments added 1# wrist weights 3 Details Side stepping Reps/Duration 10x2 Comments no Ue support 2 Details Backward stepping with alternating UE movement Reps/Duration 10x2 Comments no UE support 1 Details Forward stepping with alternating UE movement Reps/Duration 10x2 Comments no UE support Coordination Activities 2 Details Seated trunk rotation with UE reach Reps/Duration 10 1 Details Seated forward flexion with horizontal abduction Reps/Duration 10 Other Activities 1 Details sit to stand Reps/Duration 10 Comments blue foam, from low surface PT-OP-T Assessment and Plan Start: 08/11/18 13:31 Freq: Status: Active Protocol: Document 08/21/18 09:30 AMB (Rec: 08/21/18 09:31 AMB [id number]) Physical Therapy Assessment Goals Two Impairment Coordination Short Term Goal (STG) The patient will be independent with his LSVT HEP. STG Duration MET [employer] Goal (LTG) The patient will show appropriate dual tasking and alternating movement patterns in day to day tasks. LTG Duration MET One Impairment Balance Short Term Goal (STG) The patient will improve his single leg balance to 5 seconds bilaterally intermittent. STG Duration PARTIALLY MET [employer] Goal (LTG) The patient will score 24/24 on the DGI. LTG Duration MET Assessment Summary Assessment Pt would like to end the BIG program early. Considering that he is doing well and does not have any high level goals , this was accepted. PT is doing well with his exercises and has met the majority of his goals, so as long as he continues with his exercises he should continue to do well. Physical Therapy Plan Discharge Physical Therapy Discharge Reasons Goals Met
== END 2018-08-22 11:16 ==
LOC: PHYS 09:30
PROVIDERS: Family Provider Family Medicine; PCP Family Medicine; Visit Provider Psychiatry & Neurology Neurology
DX: G20 Parkinson's disease (principal)
CPT/HCPCS: 97110; 97112; 97116; 97161

== ENCOUNTER 2018-10-28 13:30 | Outpatient (RCR) | payer MEDICARE, OTHER, SELFPAY | END 2018-10-30 10:03 | LOC: SP 13:30 | PROVIDERS: Family Provider Family Medicine; PCP Family Medicine; Visit Provider Psychiatry & Neurology Neurology | DX: G20 Parkinson's disease (principal) | CPT/HCPCS: 92507; 92520; 92524 ==

== ENCOUNTER → 2019-12-09 09:33 | Outpatient (CLI) | payer MEDICARE, OTHER, SELFPAY ==
[2019-12-09 10:34] LABS: Add Manual Diff / Slide Review NO; Basophils Absolute Auto 100 /uL (0-100); Basophils Percent Auto 0.8 % (0-2); Eosinophils Absolute Auto 400 /uL (0-450); Eosinophils Percent Auto 5.1 % (2-4); Hematocrit 40.8 % (41-53); Hemoglobin 13.7 g/dL (13.5-17.5); Lymphocytes Absolute Auto 2100 /uL (1100-4500); Mean Corpuscular HGB Conc 33.6 % (30-36); Mean Corpuscular Volume 86.3 fL (80-100); Monocytes Absolute Auto 600 /uL (0-900); Monocytes Percent Auto 8.6 % (3-14); Neutrophils Absolute Auto 4000 /uL (1500-7000); Neutrophils Percent Auto 56.5 % (50-75); Platelet Count 525 X10^3/uL (150-400); Red Blood Cell Count 4.73 X10^6/uL (4.5-5.9); Red Cell Distribution Width 13.5 % (11.6-14.8); White Blood Cell Count 7.1 X10^3/uL (4.5-11.0)
[2019-12-09 10:40] LABS: BUN Creatinine Ratio 21.4 (6-22); Blood Urea Nitrogen 15 mg/dL (9-20); C-Reactive Protein Quant 0.5 mg/dL (<1.0); Estimated Glomerular Filt Rate > 60.0 mL/min (>60)
[2019-12-09 12:03] LABS: Erythrocyte Sedimentation Rate 40 MM/HR (0-15)
== END ==
PROVIDERS: PCP Family Medicine; Visit Provider Dentist Oral and Maxillofacial Surgery
DX: M27.2 Inflammatory conditions of jaws (principal)
CPT/HCPCS: 36415; 82565; 84520; 85025; 85651; 86140

== ENCOUNTER → 2019-12-11 06:54 | Outpatient (CLI) | payer MEDICARE, OTHER, SELFPAY ==
--- NOTE | 2019-12-11 | DI.MRI.S_ITS ---
PROCEDURE: MR ORBITS FACE NECK WO/W CON INDICATIONS: Inflammatory conditions of jaws TECHNIQUE: Noncontrast sagittal T1 spin echo, axial FLAIR, axial gradient echo, axial diffusion and ADC acquired through the brain. Coronal STIR, thin-slice axial T1 spin echo through the orbits. After the administration of contrast, thin-slice axial and coronal T1 spin echo with fat saturation through the orbits, axial T1 spin echo with fat saturation through the brain. COMPARISON: None. FINDINGS: Image quality: Excellent. Orbits: Globes are symmetrical. The optic nerves are normal in size, without abnormal signal or enhancement. No retrobulbar masses or fat abnormalities. The extra-ocular muscles are normal and symmetric in appearance. Lacrimal glands are normal. Optic chiasm is normal. Periorbital soft tissues appear normal. CSF spaces: Ventricles are normal in size and shape. Basal cisterns are patent. No extra-axial fluid collections. Brain: No intracranial bleeds or mass effects. No abnormal intracranial enhancement. Palacios-white matter interface is intact. Diffusion weighted images demonstrate no acute ischemic insults. Pituitary gland appears normal, without sellar or suprasellar masses. Brainstem appears normal. Normal intravascular flow voids are present. Skull and face: Calvarial marrow is normal in signal. There is prominent metal artifacts superimposed on the more lateral ramus of the left mandible, this allowing visualization in that area. On the right, however, metal artifact is absent and there is clear visualization of an inflammatory process involving the horizontal ramus of the right mandible, appreciably greater laterally than medially. 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 No adjacent soft tissue abscess is found more superficially. Edema/hyperemia within the soft tissues is most prominent in this area, laterally. A lesser degree of soft tissue edema extends along the inferior aspect of the horizontal ramus and along its medial border through this area. Sinuses: Sinuses and mastoids are clear. IMPRESSION: 1. Nonvisualization of significant portions of the left mandibular horizontal ramus due to metal artifact. The maxilla in this same area is not visualized also due to the metal artifact present. 2. There is a definite prominent inflammatory change involving the horizontal ramus on the right, without abscess formation in the adjacent soft tissues. 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 This osteomyelitis appears localized to a region measuring approximately 1.7 cm craniocaudad, 1.1 cm transverse and 1.5 cm AP. Dictated by: Bernardo Ramírez M.D. on 12/11/2019 at 10:04 Approved by: Bernardo Ramírez M.D. on 12/11/2019 at 10:13
== END ==
PROVIDERS: PCP Family Medicine; Visit Provider Dentist Oral and Maxillofacial Surgery
DX: M27.2 Inflammatory conditions of jaws (principal)
CPT/HCPCS: 70543

== ENCOUNTER → 2019-12-16 10:24 | Outpatient (ROUT) | payer MEDICARE, OTHER, SELFPAY | PROVIDERS: PCP Family Medicine; Visit Provider Dentist Oral and Maxillofacial Surgery | DX: M27.2 Inflammatory conditions of jaws (principal) | CPT/HCPCS: 87070; 87075; 87076; 87147; 87205 ==

== ENCOUNTER → 2021-11-30 08:35 | Outpatient (CLI) | payer MEDICARE, OTHER, SELFPAY ==
--- NOTE | 2021-11-30 | DI.MRI.S_ITS ---
PROCEDURE: MR LUMBAR SPINE WO CON INDICATIONS: Low back pain, unspecified TECHNIQUE: Noncontrast sagittal T1 spin echo and T2 fast echo, sagittal STIR, axial T1 and T2 fast spin echo through the lumbar spine. In cases with scoliosis, additional coronal T2 fast spin echo may be performed. COMPARISON: None. FINDINGS: Image quality: Excellent. Alignment and Curvature: Mild degenerative retrolisthesis of L5 on S1 measuring 7 mm. Bone Marrow: Marrow is of normal overall signal. No acute vertebral body compression fractures. Spinal Cord: Conus medullaris terminates at the L1-L2 level. Visualized cord demonstrates normal signal and size. Paraspinous Soft Tissues: No paravertebral masses. T12-L1: No canal stenosis or foraminal stenosis. L1-L2: Mild disc bulge. No canal stenosis or foraminal stenosis. L2-L3: Mild disc bulge. Mild facet hypertrophy. No canal stenosis or foraminal stenosis. L3-L4: Disc bulge. Mild facet hypertrophy. No significant canal stenosis. Mild right and [id number] left foraminal stenosis. L4-L5: Posterior annulus tear plus disc bulge. Facet hypertrophy. No significant canal stenosis. Mild right foraminal stenosis. There which may be related to the right L4 nerve. Reference images 7 through 10 of series 6 (axial T2). L5-S1: Severe chronic disc height loss. 7 mm retrolisthesis of L5 on S1. No significant canal stenosis. Bilateral facet hypertrophy. Moderate bilateral foraminal stenosis with mild flattening deformity on the exiting bilateral L5 nerve roots. IMPRESSION: 1. There is a multilobulated cystic structure in the posterior right psoas muscle which may be related to the right L4 nerve. It is of uncertain etiology. 2. Degenerative change with multilevel facet arthropathy. 3. No significant canal stenosis. 4. Multilevel foraminal stenosis as described above including bilateral moderate L5-S1 foraminal stenosis. Dictated by: Bobby Reyes M.D. on 11/30/2021 at 9:14 Approved by: Bobby Reyes M.D. on 11/30/2021 at 9:34
== END ==
PROVIDERS: PCP Family Medicine; Referring Provider Physical Medicine & Rehabilitation Pain Medicine; Visit Provider Physical Medicine & Rehabilitation Pain Medicine
DX: M47.816 Spondylosis without myelopathy or radiculopathy, lumbar region (principal); M47.817 Spondylosis without myelopathy or radiculopathy, lumbosacral region; M48.061 Spinal stenosis, lumbar region without neurogenic claudication; M48.07 Spinal stenosis, lumbosacral region; R22.41 Localized swelling, mass and lump, right lower limb; M54.50 Low back pain, unspecified
CPT/HCPCS: 72148

== ENCOUNTER → 2022-02-26 09:10 | Outpatient (CLI) | payer MEDICARE, OTHER, SELFPAY ==
--- NOTE | 2022-02-26 09:17 | DI.MRI.S_ITS ---
PROCEDURE: MR PELIS WO/W CON INDICATIONS: PELVIC PAIN TECHNIQUE: Noncontrast coronal T1 spin echo and STIR, sagittal T1 spin echo with fat saturation and STIR, axial T1 spin echo and T2 fast spin echo with fat saturation. After the administration of contrast, axial/sagittal/coronal T1 spin echo with fat saturation through the pelvis. COMPARISON: None. FINDINGS: Image quality: Mildly degraded by respiratory and bowel motion on all sequences. Diagnostic information is obtained. Bones: The visualized bone marrow demonstrates normal signal on all sequences. The overlying cortex appears intact. No abnormal intraosseous enhancement. Disc desiccation and degenerative endplate changes and facet hypertrophy are seen in the included lower lumbar spine. Soft tissues: A lobular T2-hyperintense cystic lesion is seen between the right psoas and right iliacus muscles measuring up to 2.9 x 1.3 x 3.1 cm in greatest extent. There is mild intrinsic T1-hyperintense signal . There may be mild peripheral contrast enhancement without definite central masslike enhancement. The scanned muscles demonstrate normal overall bulk and internal signal. Subcutaneous tissues appear normal. The prostate is enlarged, measuring 5.6 x 4.9 x 6.7 cm. IMPRESSION: 1. Nonspecific lobular 3.1 cm cystic lesion between the right psoas and iliacus muscles. Differential considerations include benign cystic lesions, versus possibly an iliopsoas abscess or less likely malignancy. No additional findings are seen that are suggestive of infection. No MR evidence of discitis/osteomyelitis. Recommend correlation with clinical findings. Consider follow-up MRI or CT in 3-6 months if no additional treatment is pursued. 2. Marked prostatomegaly. Dictated by: Kayden Nevarez M.D. on 02/26/2022 at 11:07 Approved by: Kayden Nevarez M.D. on 02/26/2022 at 11:26
== END ==
PROVIDERS: PCP Family Medicine; Referring Provider Family Medicine; Visit Provider Family Medicine
DX: R10.2 Pelvic and perineal pain (principal); M62.89 Other specified disorders of muscle; N40.0 Benign prostatic hyperplasia without lower urinary tract symptoms
CPT/HCPCS: 72197; A9579

== ENCOUNTER → 2022-09-21 10:38 | Outpatient (CLI) | payer MEDICARE, OTHER, SELFPAY ==
--- NOTE | 2022-09-21 | DI.MRI.S_ITS ---
PROCEDURE: MR LUMBAR SPINE WO/W CON INDICATIONS: Other specified disorders of muscle TECHNIQUE: Noncontrast sagittal T1 spin echo and T2 fast spin echo, sagittal STIR, axial T1 and T2 fast spin echo through the lumbar spine. In cases with scoliosis, additional coronal T2 fast spin echo may be performed. After the administration of contrast, sagittal and axial T1 spin echo with fat saturation through the lumbar spine. COMPARISON: [facility], MR, MR PELVIS WO/W CON, 02/26/2022, 9:25. [facility], CT, CT BIOPSY ABDOMEN OR RETROPERITONEAL, 01/25/2022, 12:03. [facility], MR, MR LUMBAR SPINE WO CON, 11/30/2021, 8:44. [facility], , LUMBAR TRANSFORAMINAL ANDRADE, 04/30/2022, 10:13. FINDINGS: Image quality: Excellent. Alignment and curvature: Mild degenerative grade 1 retrolisthesis at L5-S1 remains stable from the prior Marrow: Marrow is of normal overall signal. No acute vertebral body compression fractures. No suspicious marrow enhancement. Degenerative endplate changes noted at L5-S1 Spinal cord: Conus medullaris terminates at the L1 level. Visualized spinal cord demonstrates normal signal, without suspicious enhancement. Paraspinous soft tissues: In the right psoas muscle, multilobular T2 hyperintense lesion remains unchanged in size and signal characteristics. There is peripheral enhancement noted, similar prior MR pelvis. T12-L1: Normal appearance. L1-L2: Normal appearance. L2-L3: Mild disc space narrowing and circumferential disc bulge without central or foraminal stenosis L3-L4: Disc space is maintained. Mild disc bulge without central or foraminal stenosis L4-L5: Disc space is maintained. Circumferential disc bulge results in mild central stenosis. Hypertrophic facet joints noted. Moderate left and mild right foraminal stenosis L5-S1: Disc space narrowing with disc bulge present without central stenosis. Moderate bilateral foraminal stenosis IMPRESSION: 1. Stable right psoas hyperintense lesion with enhancement remains stable from the prior exam. Primary consideration would include slow-growing soft tissue etiologies such as schwannoma. Consider 1 year follow-up to document stability Approved by: Tez Marcos M.D. on 09/21/2022 at 13:12
== END ==
PROVIDERS: PCP Family Medicine; Referring Provider Family Medicine; Visit Provider Family Medicine
DX: M54.16 Radiculopathy, lumbar region (principal); M62.89 Other specified disorders of muscle; M79.604 Pain in right leg
CPT/HCPCS: 72158; A9579

== ENCOUNTER → 2022-10-29 09:15 | Outpatient (CLI) | payer MEDICARE, OTHER, SELFPAY ==
--- NOTE | 2022-10-29 09:17 | DI.RAD.S_ITS ---
PROCEDURE: XR HIP W PEL IF DONE MARKIE MIN 4V INDICATIONS: Bilateral hip pain TECHNIQUE: AP pelvis with lateral view(s) of the bilateral hip(s). COMPARISON: None. FINDINGS: Bones: No fractures or dislocations. Pelvic ring appears intact. No suspicious bony lesions. Mild symmetric axial hip joint space narrowing with minimal periarticular osteophyte formation. Degenerative disc and facet disease involves the inferior lumbar spine. Soft tissues: The visualized bowel gas pattern is normal. No suspicious soft tissue calcifications. IMPRESSION: Mild symmetric hip joint degeneration. Dictated by: Eric Treviño [facility] Interpreted: Kayden Larose MD on 10/29/2022 at 10:08 Transcribed by: HERMELINDA on 10/29/2022 at 10:10 Approved by: Kayden Larose M.D. on 10/29/2022 at 17:52
== END ==
PROVIDERS: PCP Family Medicine; Referring Provider Anesthesiology; Visit Provider Anesthesiology
DX: M16.0 Bilateral primary osteoarthritis of hip (principal); M25.551 Pain in right hip; M25.552 Pain in left hip; M47.26 Other spondylosis with radiculopathy, lumbar region; M54.50 Low back pain, unspecified; G89.29 Other chronic pain
CPT/HCPCS: 73522; 99214

== ENCOUNTER 2022-11-22 13:26 | Outpatient (CLI) | payer MEDICARE, OTHER, SELFPAY ==
--- NOTE | 2022-11-22 13:27 | DI.RAD.S_ITS ---
PROCEDURE: PAIN L/S TRANSFORAMINAL INJECT INDICATIONS: SPINAL STENOSIS COMPARISON: [facility], , LUMBAR TRANSFORAMINAL ANDRADE, 04/30/2022, 10:13. FINDINGS: Fluoroscopic spot filming was performed to verify placement of spinal needles on the right at the L5 and S1 levels, as labeled on the films. Appropriate location of the needle tips was confirmed by injection of iodinated contrast. IMPRESSION: Intraprocedural examination demonstrating appropriate positions of the needles. Dictated by: Kartik Call M.D. on 11/22/2022 at 17:04 Approved by: Kartik Call M.D. on 11/22/2022 at 17:04
[2022-11-22 13:41] VITALS: BP 167/74; PULSE 73; RESP 23; TEMP 36.6; O2SAT 96
[2022-11-22 13:59] VITALS: BP 169/80; PULSE 70; RESP 21; O2SAT 99
[2022-11-22 14:04] VITALS: BP 151/69; PULSE 65; RESP 16; O2SAT 100
[2022-11-22 14:08] VITALS: BP 172/80; PULSE 67; RESP 19; O2SAT 100
[2022-11-22 14:15] VITALS: BP 179/81; PULSE 75; RESP 20; O2SAT 98
[2022-11-22 14:20] VITALS: BP 155/69; PULSE 68; RESP 20; O2SAT 98
--- NOTE | 2022-11-22 14:25 | P.PCN_ITS ---
Date/Time/Diagnoses Date of procedure: 11/22/22 Time of procedure: 14:14 Procedure Notes Physician: Kervin Ambrose Total Fluoroscopy time (seconds): 29 Total sedation minutes: 0 Procedure in detail & Post-procedure care: Right L5 and S1 Transforaminal Epidural Steroid Injection Indications: Guillermo is referred by Dr. Byrnes for treatment of lumbar radiculopathy with low back and leg pain. Preoperative diagnosis: Right lumbar radiculopathy Postoperative diagnosis: Same Focused Examination: Ax3 Mood and affect are normal Vital Signs: VSS ASA: 2 Consent: Following review of allergies and potential side effects/complications, including, but not necessarily limited to, infection, allergic reaction, local tissue breakdown, stroke, temporary or permanent nerve injury, paralysis, and possible , the patient indicated that they understood and agreed to proceed.? An informed consent document was signed by the patient, witnessed by a nurse and placed in the patient's chart.? Additionally, other treatment options including medications and physical therapy were reviewed with the patient. All questions were answered. Site was then marked. Anesthesia: local Position: Prone Monitoring: NIBP, Pulse oximetry, 3 lead EKG Needle used: 22G? 3.5-inch spinal needle Contrast: Isovue 300M Injectate: 10 mg Dexamethasone followed by 1% lidocaine 1ml was injected at each site Technique: The skin was prepped with chloraprep and draped in a sterile fashion. Time out was then performed as per protocol. Needle entry site was then infiltrated with 5 mL of lidocaine 1%. Under fluoroscopic guidance, the spinal needles were guided into the right L5. There were no paresthesias reported by the patient during needle placement. In AP view and under real-time fluoroscopy 1ml contrast was slowly injected to each site and epidural spread was observed without evidence for intravascular nor intrathecal uptake.? Epidural spread was also evident in the lateral view. The above injectate was then administered, and the needle was subsequently withdrawn. Needle entry site for approaching the S1 posterior foramen was infiltrated with 5 mL of lidocaine 1%. Under fluoroscopic guidance, the spinal needle was guided to the superolateral aspect of the right posterior S1 foramen. There were no paresthesias reported by the patient during needle placement. In AP view and under real-time fluoroscopy 1ml contrast was slowly injected to each site and epidural spread was observed without evidence for intravascular nor intrathecal uptake.? Epidural spread was also evident in the lateral view. The above injectate was then administered, and the needle was subsequently withdrawn. Band-Aids applied to injection sites. EBL: less than 1 ml Complications: None Post Procedure: Patient was taken to the recovery and monitored. The patient was provided a Pain Log to continue to record the patient's response to the target- specific procedure prior to the patient's follow-up visit with the referring physician. Patient was stable upon discharge. Detailed post procedure instructions were provided. Patient was asked to call in the event of worsening pain, fever, weakness, numbness or bladder or bowel incontinence.
== END 2022-11-22 14:33 | disposition home or self-care (01) ==
PROVIDERS: PCP Family Medicine; Referring Provider Anesthesiology; Visit Provider Anesthesiology
DX: M54.17 Radiculopathy, lumbosacral region (principal)
CPT/HCPCS: 64483; J1100

== ENCOUNTER 2023-01-17 14:28 | Outpatient (CLI) | payer MEDICARE, OTHER, SELFPAY ==
--- NOTE | 2023-01-17 14:29 | DI.RAD.S_ITS ---
PROCEDURE: PAIN L INTERLAMINAR/CAUDAL INJ INDICATIONS: SPONDYLOSIS COMPARISON: [facility], XA, PAIN L/S TRANSFORAMINAL INJECT, 11/22/2022, 14:58. FINDINGS: Fluoroscopic spot filming was performed to verify placement of spinal needles at the L5-S1 level, as labeled on the films. Appropriate location of the needle tip was confirmed by injection of iodinated contrast. IMPRESSION: Intraprocedural examination demonstrates appropriate needle position. Approved by: Kayden Nevarez M.D. on 01/17/2023 at 20:14
[2023-01-17 14:35] VITALS: BP 145/79; PULSE 65; RESP 18; TEMP 36.7; O2SAT 97
[2023-01-17 15:25] VITALS: BP 161/72; PULSE 63; RESP 18; O2SAT 95
[2023-01-17] MEDS: IOPAMIDOL 15 ML VIAL 3 ML INJ (15:29)
[2023-01-17] MEDS: BUPIVACAINE 0.25% (PF) VIAL 2 ML INJ (15:29)
[2023-01-17 15:30] VITALS: BP 154/72; PULSE 60; RESP 18; O2SAT 95
[2023-01-17] MEDS: methylPREDNISolone acetate 80 MG/ML VIAL INJ (15:30)
[2023-01-17 15:40] VITALS: BP 162/70; PULSE 60; RESP 20; O2SAT 97
--- NOTE | 2023-01-17 17:26 | P.PCN_ITS ---
Date/Time/Diagnoses Date of procedure: 01/17/23 Time of procedure: 15:00 Procedure Notes Physician: Kervin Ambrose Total Fluoroscopy time (seconds): 13 Total sedation minutes: 0 Procedure in detail & Post-procedure care: Right directed L4-5 Interlaminar Epidural Steroid Injection Indications: Guillermo is referred by Dr. Byrnes for treatment of lumbar radiculopathy with low back and leg pain. Preoperative diagnosis: Lumbar radiculopathy Postoperative diagnosis: Same Focused Examination: Ax3 Mood and affect are normal Vital Signs: VSS ASA: 2 Consent: Following review of allergies and potential side effects/complications, including, but not necessarily limited to, infection, allergic reaction, local tissue breakdown, stroke, temporary or permanent nerve injury, paralysis, and possible , the patient indicated that they understood and agreed to proceed.? An informed consent document was signed by the patient, witnessed by a nurse and placed in the patient's chart.? Additionally, other treatment options including medications and physical therapy were reviewed with the patient. All questions were answered. Site was then marked. Anesthesia: Local Position: Prone Monitoring: NIBP, Pulse oximetry, 3 lead EKG Needle used: 18 G 3.5? Tuohy Contrast: Isovue 300M Injectate: Depo-Medrol 80 mg with 0.25% Bupivacaine 2 mL Technique: The skin was prepped with chloraprep and then draped in a sterile fashion. Time out was performed as per protocol. Oxygen applied via NC. Skin and subcutaneous structures of the needle entry site was then infiltrated with 3 mL of lidocaine 1%. Under AP, lateral and contralateral oblique fluoroscopic control, the Tuohy needle was guided into the L4-5 epidural space. The space was accessed with loss of resistance technique. Isovue 300M was then injected and the spread was consistent with the epidural space. There was no evidence for intravascular or intrathecal uptake. After negative aspiration, the above- mentioned injectate was then slowly administered and the needle withdrawn. The patient expressed no unusual discomfort or paresthesias during the injection. Band-Aids applied to injection sites. EBL: less than 1 ml Complications: None Post Procedure: Patient was taken to the recovery and monitored. The patient was provided a Pain Log to continue to record the patient's response to the target- specific procedure prior to the patient's follow-up visit with the referring physician. Patient was stable upon discharge. Detailed post procedure instructions were provided. Patient was asked to call in the event of worsening pain, fever, weakness, numbness or bladder or bowel incontinence.
== END 2023-01-17 15:53 | disposition home or self-care (01) ==
LOC: RAD 14:29
PROVIDERS: PCP Family Medicine; Referring Provider Anesthesiology; Visit Provider Anesthesiology
DX: M54.16 Radiculopathy, lumbar region (principal)
CPT/HCPCS: 62323; J1040; J3490

== ENCOUNTER 2023-03-05 10:45 | Observation (INO) | payer MEDICARE, OTHER, SELFPAY ==
[2023-03-05] VITALS (12 sets, daily range): BP systolic 100–171; BP diastolic 56–96; PULSE 64–118; RESP 20–28; TEMP 36.1–36.3; O2SAT 86–98; BMI 22.7; BMI 23.6
--- NOTE | 2023-03-05 10:47 | DI.RAD.S_ITS ---
PROCEDURE: XR CHEST 1V INDICATIONS: chest pain TECHNIQUE: One view of the chest was acquired. COMPARISON: None. FINDINGS: Surgical changes and devices: None. Lungs and pleura: Patchy bibasilar atelectasis. No pleural effusions or pneumothorax. Mediastinum: Mediastinal contours appear normal. Heart size is normal. Bones and chest wall: No suspicious bony lesions. Overlying soft tissues appear unremarkable. IMPRESSION: Patchy bibasilar atelectasis. Dictated by: Bobby Reyes M.D. on 03/05/2023 at 11:07 Approved by: Bobby Reyes M.D. on 03/05/2023 at 11:07
--- NOTE | 2023-03-05 10:55 | ED_ITS ---
HPI - General Adult General Chief complaint: Arrhythmia/Palpitations Stated complaint: sob, edema, new a flutter Time Seen by Provider: 03/05/23 10:51 History of Present Illness HPI narrative: 83-year-old male former smoker with history of hypertension, hyperlipidemia, lumbar radiculopathy and possible prior atrial arrhythmia with questionable ablation many years ago presents from diagnostic imaging due to shortness of breath. The patient and his report that he has been short of breath for about 1 week and state that he is short of breath while at rest but noticeably worse when he ambulates. Also, he becomes increasingly short of breath while lying flat. He is had no fever or chills. He denies any runny nose, sore throat or cough. He denies chest pain or heaviness. He denies abdominal pain, nausea, vomiting or diarrhea. He does have low back pain which frequently radiates down his leg but this is not new. He denies recent travel, injury, history of clot or known cancer. Related Data Home Medications Medication Instructions Recorded Confirmed tadalafil 20 mg tablet (Cialis) 20 mg PO PRN PRN ##0 07/19/16 02/13/23 tamsulosin 0.4 mg capsule (Flomax) 0.4 mg PO QDAY ##0 07/19/16 02/13/23 amlodipine 10 mg tablet 10 mg PO DAILY 10/08/22 02/13/23 ascorbic acid (vitamin C) 500 mg mg PO 10/08/22 02/13/23 capsule atorvastatin 20 mg tablet 20 mg PO BEDTIME 10/08/22 02/13/23 cholecalciferol (vitamin D3) 50 50 mcg PO DAILY 10/08/22 02/13/23 mcg (2,000 unit) capsule losartan 100 mg tablet 100 mg PO DAILY 10/08/22 02/13/23 ropinirole 4 mg tablet,extended 4 mg PO BEDTIME 10/08/22 02/13/23 release 24 hr PROBIOTIC PO DAILY 02/13/23 02/13/23 carbidopa ER 50 mg-levodopa 200 mg 1 tab PO 5XD 02/13/23 02/13/23 tablet,extended release docusate sodium 100 mg capsule 100 mg PO DAILY PRN 02/13/23 02/13/23 (Colace) omega 0-dmg-qej-fish oil 60 mg-90 1 cap PO DAILY 02/13/23 02/13/23 mg-500 mg capsule (Fish Oil) rasagiline 1 mg tablet 1 mg PO DAILY 02/13/23 02/13/23 ropinirole 2 mg tablet 2 mg PO DAILY 02/13/23 02/13/23 Previous Rx's Medication Instructions Recorded gabapentin 300 mg capsule 300 mg PO .COMPLEX #90 caps 12/27/22 Allergies Allergy/AdvReac Type Severity Reaction Status Date / Time No Known Drug Allergies Allergy Unverified 02/13/23 11:31 Review of Systems Review of Systems Narrative: GENERAL: Denies chills, fatigue, malaise, fever, sweats. HEENT: Denies sinus pain, ear pain, sore throat, difficulty swallowing, dizziness. RESPIRATORY: See HPI CARDIOVASCULAR: HPI see HPI GASTROINTESTINAL: Denies nausea, vomiting, abdominal pain, diarrhea, constipation, melena. : Denies dysuria, frequency, incontinence, hematuria, urinary retention. MUSCULOSKELETAL: denies weakness, joint pain, or bony pain SKIN: Denies rash, skin lesions, or other NEUROLOGIC: Denies weakness, headache, numbness, change in speech, confusion, seizures, incoordination. PSYCHIATRIC: No concerning psychosocial issues. 12 point review of systems is negative except for those stated above Patient History Medical History Greater trochanteric bursitis of right hip Groin pain, chronic, right Hip pain Iliotibial band syndrome affecting right lower leg Low back pain Lumbosacral radiculopathy Other spondylosis with radiculopathy, lumbar region Spinal stenosis, lumbar region with neurogenic claudication Social History Smoking Status: Former smoker Smoking Status: Former smoker Exam Narrative Exam Narrative: GENERAL: [83] year old patient appears stated age. Well-developed patient, in mild distress. HEAD: Atraumatic. Normocephalic. EYES: Pupils equal round and reactive. Extraocular motions intact. No scleral icterus. No injection or drainage. ENT: Nose without bleeding, purulent drainage. Throat without erythema, ton sillar hypertrophy or exudate. Airway patent. NECK: Trachea midline. Non tender CARDIOVASCULAR: Regular rate and rhythm without murmurs, gallops, or rubs. RESPIRATORY: Clear to auscultation. Breath sounds equal bilaterally. No wheezes, rales, or rhonchi. GASTROINTESTINAL: Abdomen soft, non-tender, nondistended. EXTREMITIES: No edema or joint tenderness. BACK: Nontender without deformity or crepitance. No flank tenderness. NEURO: AOx3. SKIN: No rash or erythema of visible areas Initial Vital Signs Initial Vital Signs: Vital Signs Pulse Rate 100 H 03/05/23 10:51 Respiratory Rate 25 H 03/05/23 10:51 Pulse Oximetry 98 03/05/23 10:51 Course Orders Ordered: ED Orders 03/05/23 10:47 XR chest 1V Stat EKG-12 Lead Stat 03/05/23 10:53 Complete Blood Count AUTO DIFF Stat Comprehensive Metabolic Panel Stat Lipase Stat Magnesium Stat PTT Partial Thromboplastin Jeremiah Stat Prothrombin Time INR Stat Troponin & CK Cardiac Panel Stat 03/05/23 11:42 BNP [NT-proBNP (BNP-Adult 18+)] Stat 03/05/23 11:46 COVID19 -Nasal RAPID Stat 03/05/23 11:58 D Dimer Stat 03/05/23 12:18 ABG [Arterial Blood Gas] Stat DILTIAZEM (Diltiazem 125 Mg/125 Ml-D5w) 125 mg in 125 mls @ 5 mls/hr IV TITRATE DULCE; Protocol Last Admin: 03/05/23 12:44 Dose: 5 mg/hr, 5 mls/hr Documented By: CRISTHIAN Discontinued Medications Diltiazem HCl (Diltiazem 5 Mg/Ml Sdv) 10 mg IV NOW ONE Stop: 03/05/23 12:19 Last Admin: 03/05/23 12:41 Dose: 10 mg Documented By: CRISTHIAN Furosemide (Furosemide 40 Mg/4 Ml Vial) 40 mg IV NOW ONE Stop: 03/05/23 12:19 Last Admin: 03/05/23 12:39 Dose: 40 mg Documented By: CRISTHIAN Vital Signs Vital signs: Vital Signs - 8 hr 03/05/23 10:57 03/05/23 10:51 03/05/23 11:50 Temperature 97.2 F L Pulse Rate 109 H 100 H Respiratory Rate 22 25 H Blood Pressure 141/69 H Pulse Oximetry 98 98 86 L Oxygen Delivery Method Room Air Room Air 03/05/23 12:41 03/05/23 12:45 Temperature Pulse Rate 104 H 118 H Respiratory Rate 26 H Blood Pressure 164/96 H 171/73 H Pulse Oximetry 97 Oxygen Delivery Method Room Air Medical Decision Making Lab Data 03/05/23 10:53 03/05/23 10:53 Labs: Lab Results 03/05/23 03/05/23 03/05/23 Range/Units 10:53 10:53 10:53 WBC 5.5 (4.5-11.0) X10^3/uL RBC 4.55 (4.5-5.9) X10^6/uL Hgb 13.3 L (13.5-17.5) g/dL Hct 39.4 L (41-53) % MCV 86.6 (80-100) fL MCH 29.3 (26-34) PG MCHC 33.9 (30-36) % RDW 13.6 (11.6-14.8) % Plt Count 327 (150-400) X10^3/uL Neut % (Auto) 59.9 (50-75) % Lymph % (Auto) 29.4 (25-40) % [place] % (Auto) 7.5 (3-14) % Eos % (Auto) 2.8 (2-4) % Baso % (Auto) 0.4 (0-2) % Neut # (Auto) 3300 (8146-7909) /uL Lymph # (Auto) 1600 (7593-6896) /uL [place] # (Auto) 400 (0-900) /uL Eos # (Auto) 200 (0-450) /uL Baso # (Auto) 0 (0-100) /uL PT 10.3 (10.1-12.7) SECONDS INR 0.9 (0.9-1.3) APTT 39 H (26-36) SECONDS D-Dimer (<500) ng/ml ABG pH (7.35-7.45) ABG pCO2 (35-45) mmHg ABG pO2 (80-100) mmHg ABG HCO3 (23-27) mmol/L ABG Total CO2 (23-27) mmol/L ABG O2 Saturation (95-100) % ABG Base Excess (-2-3) mmol/L FiO2 Sodium 138 (137-145) mmol/L Potassium 3.4 (3.4-5.1) mmol/L Chloride 103 (98-107) mmol/L Carbon Dioxide 30 (22-32) mmol/L BUN 14 (9-20) mg/dL Creatinine 0.72 (0.66-1.25) mg/dL Estimated GFR > 60 (>60) mL/min BUN/Creatinine Ratio 19.4 (6-22) Glucose 92 (80-110) mg/dL Calcium 8.6 (8.4-10.2) mg/dL Magnesium 2.1 (1.6-2.3) mg/dL Total Bilirubin 0.5 (0.2-1.3) mg/dL AST 32 (17-59) IU/L ALT 9 (<50) IU/L Alkaline Phosphatase 62 (38-126) U/L Total Creatine Kinase 265 H (55-170) U/L CK-MB (CK-2) 3.16 H (<2.37) ng/mL CK-MB (CK-2) Rel Index 1.2 L (1.5-5.0) % Troponin I < 0.012 (0.01-0.034) ng/mL NT-Pro-B Natriuret Pep (<450) pg/mL Total Protein 7.0 (6.3-8.2) g/dL Albumin 4.2 (3.5-5.0) g/dL Globulin 2.8 (1.7-4.1) g/dL Albumin/Globulin Ratio 1.5 (1.0-2.8) Lipase 47 (23-300) U/L SARS-CoV-2 (PCR) (Negative) 03/05/23 03/05/23 03/05/23 Range/Units 10:53 11:42 11:46 WBC (4.5-11.0) X10^3/uL RBC (4.5-5.9) X10^6/uL Hgb (13.5-17.5) g/dL Hct (41-53) % MCV (80-100) fL MCH (26-34) PG MCHC (30-36) % RDW (11.6-14.8) % Plt Count (150-400) X10^3/uL Neut % (Auto) (50-75) % Lymph % (Auto) (25-40) % [place] % (Auto) (3-14) % Eos % (Auto) (2-4) % Baso % (Auto) (0-2) % Neut # (Auto) (5827-8191) /uL Lymph # (Auto) (9723-2179) /uL [place] # (Auto) (0-900) /uL Eos # (Auto) (0-450) /uL Baso # (Auto) (0-100) /uL PT (10.1-12.7) SECONDS INR (0.9-1.3) APTT (26-36) SECONDS D-Dimer 680 H (<500) ng/ml ABG pH (7.35-7.45) ABG pCO2 (35-45) mmHg ABG pO2 (80-100) mmHg ABG HCO3 (23-27) mmol/L ABG Total CO2 (23-27) mmol/L ABG O2 Saturation (95-100) % ABG Base Excess (-2-3) mmol/L FiO2 Sodium (137-145) mmol/L Potassium (3.4-5.1) mmol/L Chloride (98-107) mmol/L Carbon Dioxide (22-32) mmol/L BUN (9-20) mg/dL Creatinine (0.66-1.25) mg/dL Estimated GFR (>60) mL/min BUN/Creatinine Ratio (6-22) Glucose (80-110) mg/dL Calcium (8.4-10.2) mg/dL Magnesium (1.6-2.3) mg/dL Total Bilirubin (0.2-1.3) mg/dL AST (17-59) IU/L ALT (<50) IU/L Alkaline Phosphatase (38-126) U/L Total Creatine Kinase (55-170) U/L CK-MB (CK-2) (<2.37) ng/mL CK-MB (CK-2) Rel Index (1.5-5.0) % Troponin I (0.01-0.034) ng/mL NT-Pro-B Natriuret Pep 200 (<450) pg/mL Total Protein (6.3-8.2) g/dL Albumin (3.5-5.0) g/dL Globulin (1.7-4.1) g/dL Albumin/Globulin Ratio (1.0-2.8) Lipase (23-300) U/L SARS-CoV-2 (PCR) Negative (Negative) 03/05/23 Range/Units 13:16 WBC (4.5-11.0) X10^3/uL RBC (4.5-5.9) X10^6/uL Hgb (13.5-17.5) g/dL Hct (41-53) % MCV (80-100) fL MCH (26-34) PG MCHC (30-36) % RDW (11.6-14.8) % Plt Count (150-400) X10^3/uL Neut % (Auto) (50-75) % Lymph % (Auto) (25-40) % [place] % (Auto) (3-14) % Eos % (Auto) (2-4) % Baso % (Auto) (0-2) % Neut # (Auto) (3394-0323) /uL Lymph # (Auto) (4274-1052) /uL [place] # (Auto) (0-900) /uL Eos # (Auto) (0-450) /uL Baso # (Auto) (0-100) /uL PT (10.1-12.7) SECONDS INR (0.9-1.3) APTT (26-36) SECONDS D-Dimer (<500) ng/ml ABG pH 7.43 (7.35-7.45) ABG pCO2 41.3 (35-45) mmHg ABG pO2 72 L (80-100) mmHg ABG HCO3 28 H (23-27) mmol/L ABG Total CO2 29 H (23-27) mmol/L ABG O2 Saturation 95 (95-100) % ABG Base Excess 3.0 (-2-3) mmol/L FiO2 21 Sodium (137-145) mmol/L Potassium (3.4-5.1) mmol/L Chloride (98-107) mmol/L Carbon Dioxide (22-32) mmol/L BUN (9-20) mg/dL Creatinine (0.66-1.25) mg/dL Estimated GFR (>60) mL/min BUN/Creatinine Ratio (6-22) Glucose (80-110) mg/dL Calcium (8.4-10.2) mg/dL Magnesium (1.6-2.3) mg/dL Total Bilirubin (0.2-1.3) mg/dL AST (17-59) IU/L ALT (<50) IU/L Alkaline Phosphatase (38-126) U/L Total Creatine Kinase (55-170) U/L CK-MB (CK-2) (<2.37) ng/mL CK-MB (CK-2) Rel Index (1.5-5.0) % Troponin I (0.01-0.034) ng/mL NT-Pro-B Natriuret Pep (<450) pg/mL Total Protein (6.3-8.2) g/dL Albumin (3.5-5.0) g/dL Globulin (1.7-4.1) g/dL Albumin/Globulin Ratio (1.0-2.8) Lipase (23-300) U/L SARS-CoV-2 (PCR) (Negative) MDM Narrative Medical decision making narrative: 83-year-old male presents with shortness of breath over the past week or so and is found to be in a rapid atrial fibrillation. It sounds like he likely has a history and was probably ablated many years ago but is not currently being treated, not anticoagulated. He is not appropriate for cardioversion given the duration of his symptoms and lack of anticoagulation. He is going to require hospitalization for rate control with Cardizem, likely diuresis, echo and further stabilization and workup as deemed necessary by the hospital team. Other diagnoses such as infectious process, myocardial ischemia, pulmonary embolism, renal failure, electrolyte abnormality among others were considered but thought unlikely given history, physical, labs among others. Dr. Allen has been contacted and happy to take the patient on his service, he is seen the patient at the bedside and will write orders. Patient and family understand and agree with the diagnosis and plan Discharge Plan Departure Patient Disposition: Admitted As Inpatient Clinical Impression: Atrial fibrillation with RVR Admit Date/Time: 03/05/23 13:22 Admit Provider: Ortega Allen
[2023-03-05 11:01] LABS: Add Manual Diff / Slide Review NO; Basophils Absolute Auto 0 /uL (0-100); Basophils Percent Auto 0.4 % (0-2); Eosinophils Absolute Auto 200 /uL (0-450); Eosinophils Percent Auto 2.8 % (2-4); Hematocrit 39.4 % (41-53); Hemoglobin 13.3 g/dL (13.5-17.5); Lymphocytes Absolute Auto 1600 /uL (1100-4500); Lymphocytes Percent Auto 29.4 % (25-40); Mean Corpuscular HGB Conc 33.9 % (30-36); Mean Corpuscular Hemoglobin 29.3 PG (26-34); Mean Corpuscular Volume 86.6 fL (80-100); Monocytes Absolute Auto 400 /uL (0-900); Monocytes Percent Auto 7.5 % (3-14); Neutrophils Absolute Auto 3300 /uL (1500-7000); Neutrophils Percent Auto 59.9 % (50-75); Platelet Count 327 X10^3/uL (150-400); Red Blood Cell Count 4.55 X10^6/uL (4.5-5.9); Red Cell Distribution Width 13.6 % (11.6-14.8); White Blood Cell Count 5.5 X10^3/uL (4.5-11.0)
[2023-03-05 11:10] LABS: INR 0.9 (0.9-1.3); Prothrombin Time 10.3 SECONDS (10.1-12.7)
[2023-03-05 11:12] LABS: PTT Partial Thromboplastin Tim 39 SECONDS (26-36)
[2023-03-05 11:14] LABS: Alanine Aminotransferase 9 IU/L (<50); Albumin 4.2 g/dL (3.5-5.0); Albumin Globulin Ratio 1.5 (1.0-2.8); Alkaline Phosphatase 62 U/L (38-126); Aspartate Aminotransferase 32 IU/L (17-59); BUN Creatinine Ratio 19.4 (6-22); Bilirubin Total 0.5 mg/dL (0.2-1.3); Blood Urea Nitrogen 14 mg/dL (9-20); Calcium 8.6 mg/dL (8.4-10.2); Carbon Dioxide 30 mmol/L (22-32); Chloride 103 mmol/L (98-107); Creatine Kinase 265 U/L (55-170); Estimated Glomerular Filt Rate > 60 mL/min (>60); Globulin 2.8 g/dL (1.7-4.1); Glucose 92 mg/dL (80-110); HEMOLYSIS < 15 (0-50); Lipase 47 U/L (23-300); Magnesium 2.1 mg/dL (1.6-2.3); Potassium 3.4 mmol/L (3.4-5.1); Sodium 138 mmol/L (137-145)
[2023-03-05 11:24] LABS: Troponin I < 0.012 ng/mL (0.01-0.034)
[2023-03-05 11:29] LABS: CKMB % Relative Index 1.2 % (1.5-5.0); Creatine Kinase MB 3.16 ng/mL (<2.37)
[2023-03-05 12:09] LABS: NT-proBNP (BNP-Adult 18+) 200 pg/mL (<450)
[2023-03-05 12:10] LABS: COVID19 -Nasal RAPID Negative (Negative)
[2023-03-05 12:10] LABS: D Dimer 680 ng/ml (<500)
[2023-03-05] MEDS: FUROSEMIDE 40 MG/4 ML VIAL IV (12:39)
[2023-03-05] MEDS: dilTIAZem 5 MG/ML SDV 10 MG IV (12:41)
[2023-03-05] MEDS: DILTIAZEM 125 MG/125 ML PIGGYBACK IV ×2 (12:44→16:24)
[2023-03-05 13:25] LABS: Fractionated Inspired Oxygen 21; HCO3 ABG 28 mmol/L (23-27); Oxygen Saturation ABG 95 % (95-100); PCO2 ABG 41.3 mmHg (35-45); PO2 ABG 72 mmHg (80-100); TCO2 ABG 29 mmol/L (23-27); pH ABG 7.43 (7.35-7.45)
--- NOTE | 2023-03-05 15:54 | DI.ECHO.S_ITS ---
[facility] +---------+ : : [address] [place] [address] : : : : [id number] : : : : Phone: [phone]+ Echocardiogram Report + + :Name: JULIANNA TARIQ Study Date: 03/06/2023 Height: 66 in : :[facility] ReadingLocation: Weight: 141 lb : : Gender: Male BSA: 1.7 m2 : :: 1940 Age: 83 yrs BP: 140/65 mmHg: :Reason For Study: ATRIAL FIBRILLATION : :Ordering Physician: ELIZABETH, : :JEREMIAS Performed By: Kait Laurent : :Referring: JEREMIAS JOHNSON : + + Interpretation Summary The ejection fraction is estimated to be 55-60%. There is mild to moderate mitral regurgitation. There is mild aortic regurgitation. There is moderate tricuspid regurgitation. The right ventricular systolic pressure is estimated to be at least 47 mmHg based on an estimated right atrial pressure of 3 mm Hg. Procedure: A two-dimensional transthoracic echocardiogram with color flow and Doppler was performed. The study quality was technically adequate. There is no prior echocardiogram noted for this patient. The patient had occasional PVCs during the exam. Left Ventricle: The left ventricle is normal in size and wall thickness. A false chord is noted (normal variant). The ejection fraction is estimated to be 55-60%. Left ventricular wall motion is normal. Right Ventricle: The right ventricle is normal in size and function. Atria: The left atrium is mildly dilated. Right atrial size is normal. There is no Doppler evidence for an interatrial shunt. Mitral Valve: The mitral valve leaflets appear normal. There is no evidence of stenosis, fluttering, or prolapse. There is mild to moderate mitral regurgitation. There are multiple regurgitant jets present. Aortic Valve: The aortic valve is trileaflet. The aortic valve opens well. The aortic valve is slightly calcified. There is no aortic valve stenosis. There is mild aortic regurgitation. Tricuspid Valve: The tricuspid valve leaflets are thin and pliable. There is moderate tricuspid regurgitation. The right ventricular systolic pressure is estimated to be at least 47 mmHg based on an estimated right atrial pressure of 3 mm Hg. Pulmonic Valve: The pulmonic valve is not well seen, but is grossly normal. There is mild pulmonic regurgitation. Great Vessels: The aortic root is normal size. The dimensions of the ascending aorta are normal. The IVC is of normal diameter and collapses greater than 50% with a sniff. This suggests a low right atrial pressure of 3 mm Hg. Pericardium/ Pleura There is no pericardial effusion. There is no pleural effusion. MMode/2D Measurements & Calculations LVIDd: 5.0 cm LVOT diam: 2.0 cm LVIDs: 3.2 cm Ao root diam: 3.3 cm FS: 36.8 % asc Aorta Diam: 3.1 cm EPSS: 0.28 cm IVSd: 0.86 cm LVPWd: 0.93 cm LV goodman. diameter/BSA (cm/m^2): 2.9 LV sys. diameter/BSA (cm/m^2): 1.8 LA A2 area: 22.9 cm2 RA long axis: 5.3 cm LA A4 area: 17.9 cm2 RA area: 16.3 cm2 LA length (vol): 4.9 cm RA vol: 42.5 ml LA vol: 70.8 ml RA : 24.6 ml/m2 LA vol index: 41.0 ml/m2 IVC diam: 1.9 cm RVD1 (basal): 3.8 cm TAPSE: 2.2 cm Doppler Measurements & Calculations Ao V2 max: 129.8 cm/sec LVOT Max Jhon: 83.5 cm/sec Ao V2 mean: 83.8 cm/sec LV V1 max P.8 mmHg Ao max P.7 mmHg LV V1 VTI: 20.6 cm Ao mean P.3 mmHg NELL(I,D): 2.2 cm2 Ao V2 VTI: 29.8 cm NELL(V,D): 2.0 cm2 sev ratio: 0.69 NELL indexed to BSA (cm^2/m^2): 1.3 AI P1/2t: 634.3 msec AI dec slope: 167.9 cm/sec2 MV E max jhon: 104.4 cm/sec TR max jhon: 333.1 cm/sec MV A max jhon: 106.7 cm/sec TR max P.4 mmHg MV E/A: 0.98 PA V2 max: 76.9 cm/sec Med Peak E' Jhon: 9.4 cm/sec PA V2 mean: 48.4 cm/sec E/E' med: 11.1 PA mean P.1 mmHg Lat Peak E' Jhon: 6.4 cm/sec E/E' lat: 16.3 E/e' average: 13.7 MV dec time: 0.21 sec MR ERO: 0.27 cm2 VTI: 207.8 cm MR PISA: 3.0 cm2 MR flow rate: 149.2 cm3/sec MR PISA radius: 0.70 cm [facility] 65.6 ml Reading Physician:09:53 AM
--- NOTE | 2023-03-05 18:02 | PM.HP.1 ---
History of Present Illness History of Present Illness Date Patient Seen: 03/05/23 Time Patient Seen: 18:03 Date of Onset of Symptoms: 02/27/23 Chief complaint: sob, edema, new a flutter Narrative: Patient is an 83-year-old male who presents with dyspnea with exertion. Apparently it has been going on for a week. Seems to get worse and then seems to get better. No other changes. Seems to be worse at night lying down. He is had no chest pain. No fevers no chills no cough. Maybe a little wheeze over the last 24 hours. No other changes. Has otherwise been feeling well. Apparently patient has a history maybe in 1999 9 of having atrial fibrillation with possible ablation. Has not had issues since. Has not been on anticoagulation. Patient otherwise has felt well. He is not had any sickness. He is not been traveling has no known cancer. Patient has a history of Parkinson's disease. Has been stable. History of hypertension hyperlipidemia. Has a history of reflux but no other changes. Family history is significant for hypertension prostate cancer Diabetes Social history retired [employer] Medical History Greater trochanteric bursitis of right hip Groin pain, chronic, right Hip pain Iliotibial band syndrome affecting right lower leg Low back pain Lumbosacral radiculopathy Other spondylosis with radiculopathy, lumbar region Spinal stenosis, lumbar region with neurogenic claudication Social History household members: spouse Smoking Status: Former smoker alcohol intake: never Meds Home Medications and Allergies Home Medications Medication Instructions Recorded Confirmed Type tadalafil 20 mg tablet (Cialis) 20 mg PO DAILY PRN Urinary 07/19/16 03/05/23 History Retention ##0 tamsulosin 0.4 mg capsule (Flomax) 0.4 mg PO BEDTIME ##0 07/19/16 03/05/23 History amlodipine 10 mg tablet 10 mg PO DAILY 10/08/22 03/05/23 History ascorbic acid (vitamin C) 500 mg 500 mg PO DAILY 10/08/22 03/05/23 History capsule atorvastatin 20 mg tablet 20 mg PO BEDTIME 10/08/22 03/05/23 History cholecalciferol (vitamin D3) 50 50 mcg PO DAILY 10/08/22 03/05/23 History mcg (2,000 unit) capsule losartan 100 mg tablet 100 mg PO DAILY 10/08/22 03/05/23 History ropinirole 4 mg tablet,extended 4 mg PO DAILY 10/08/22 03/05/23 History release 24 hr gabapentin 300 mg capsule 300 mg PO .COMPLEX #90 caps 12/27/22 03/05/23 Rx PROBIOTIC 1 tab PO DAILY 02/13/23 03/05/23 History carbidopa ER 50 mg-levodopa 200 mg 1 tab PO 5XD 02/13/23 03/05/23 History tablet,extended release docusate sodium 100 mg capsule 100 mg PO DAILY PRN Constipation 02/13/23 03/05/23 History (Colace) omega 7-bvg-xqe-fish oil 60 mg-90 1 cap PO DAILY 02/13/23 03/05/23 History mg-500 mg capsule (Fish Oil) rasagiline 1 mg tablet 1 mg PO DAILY 02/13/23 03/05/23 History ropinirole 2 mg tablet 2 mg PO BEDTIME 02/13/23 03/05/23 History Allergies Allergy/AdvReac Type Severity Reaction Status Date / Time No Known Drug Allergies Allergy Verified 03/05/23 15:29 Review of Systems Review of Systems Narrative: All negative except above Exam Vital Signs (past 8 hours): - 03/05/23 10:57 03/05/23 10:51 03/05/23 11:50 Temperature 97.2 F L Pulse Rate 109 H 100 H Respiratory Rate 22 25 H Blood Pressure 141/69 H Pulse Oximetry 98 98 86 L Oxygen Delivery Method Room Air Room Air Oxygen Flow Rate 03/05/23 12:41 03/05/23 12:45 03/05/23 13:45 Temperature Pulse Rate 104 H 118 H 105 H Respiratory Rate 26 H 28 H Blood Pressure 164/96 H 171/73 H 106/57 L Pulse Oximetry 97 96 Oxygen Delivery Method Room Air Room Air Oxygen Flow Rate 03/05/23 15:00 03/05/23 16:14 03/05/23 15:54 Temperature 97.3 F L Pulse Rate 80 97 H Respiratory Rate 22 22 Blood Pressure 112/56 L 122/67 Pulse Oximetry 96 96 Oxygen Delivery Method Room Air Room Air Oxygen Flow Rate 0 03/05/23 16:54 03/05/23 17:00 Temperature Pulse Rate 80 81 Respiratory Rate 20 23 Blood Pressure 116/65 110/68 Pulse Oximetry 96 93 Oxygen Delivery Method Oxygen Flow Rate 0 0 Oxygen Delivery Method Room Air Oxygen Flow Rate 0 Narrative Exam Narrative: Alert elderly male slow to respond but appropriate in no acute distress HEENT exam mucous membranes moist neck supple without adenopathy JVD or bruits. Lungs are clear. Heart is irregular rhythm with rate in the 113. Abdomen is soft positive bowel sounds nontender. Extremities without edema. Neurologic exam is nonfocal but he is slow moving Objective Labs 03/05/23 10:53 03/05/23 10:53 Labs: Laboratory Results - last 24 hr 03/05/23 03/05/23 03/05/23 10:53 10:53 10:53 WBC 5.5 RBC 4.55 Hgb 13.3 L Hct 39.4 L MCV 86.6 MCH 29.3 MCHC 33.9 RDW 13.6 Plt Count 327 Neut % (Auto) 59.9 Lymph % (Auto) 29.4 [place] % (Auto) 7.5 Eos % (Auto) 2.8 Baso % (Auto) 0.4 Neut # (Auto) 3300 Lymph # (Auto) 1600 [place] # (Auto) 400 Eos # (Auto) 200 Baso # (Auto) 0 PT 10.3 INR 0.9 APTT 39 H D-Dimer ABG pH ABG pCO2 ABG pO2 ABG HCO3 ABG Total CO2 ABG O2 Saturation ABG Base Excess FiO2 Sodium 138 Potassium 3.4 Chloride 103 Carbon Dioxide 30 BUN 14 Creatinine 0.72 Estimated GFR > 60 BUN/Creatinine Ratio 19.4 Glucose 92 Calcium 8.6 Magnesium 2.1 Total Bilirubin 0.5 AST 32 ALT 9 Alkaline Phosphatase 62 Total Creatine Kinase 265 H CK-MB (CK-2) 3.16 H CK-MB (CK-2) Rel Index 1.2 L Troponin I < 0.012 NT-Pro-B Natriuret Pep Total Protein 7.0 Albumin 4.2 Globulin 2.8 Albumin/Globulin Ratio 1.5 Lipase 47 SARS-CoV-2 (PCR) 03/05/23 03/05/23 03/05/23 10:53 11:42 11:46 WBC RBC Hgb Hct MCV MCH MCHC RDW Plt Count Neut % (Auto) Lymph % (Auto) [place] % (Auto) Eos % (Auto) Baso % (Auto) Neut # (Auto) Lymph # (Auto) [place] # (Auto) Eos # (Auto) Baso # (Auto) PT INR APTT D-Dimer 680 H ABG pH ABG pCO2 ABG pO2 ABG HCO3 ABG Total CO2 ABG O2 Saturation ABG Base Excess FiO2 Sodium Potassium Chloride Carbon Dioxide BUN Creatinine Estimated GFR BUN/Creatinine Ratio Glucose Calcium Magnesium Total Bilirubin AST ALT Alkaline Phosphatase Total Creatine Kinase CK-MB (CK-2) CK-MB (CK-2) Rel Index Troponin I NT-Pro-B Natriuret Pep 200 Total Protein Albumin Globulin Albumin/Globulin Ratio Lipase SARS-CoV-2 (PCR) Negative 03/05/23 13:16 WBC RBC Hgb Hct MCV MCH MCHC RDW Plt Count Neut % (Auto) Lymph % (Auto) [place] % (Auto) Eos % (Auto) Baso % (Auto) Neut # (Auto) Lymph # (Auto) [place] # (Auto) Eos # (Auto) Baso # (Auto) PT INR APTT D-Dimer ABG pH 7.43 ABG pCO2 41.3 ABG pO2 72 L ABG HCO3 28 H ABG Total CO2 29 H ABG O2 Saturation 95 ABG Base Excess 3.0 FiO2 21 Sodium Potassium Chloride Carbon Dioxide BUN Creatinine Estimated GFR BUN/Creatinine Ratio Glucose Calcium Magnesium Total Bilirubin AST ALT Alkaline Phosphatase Total Creatine Kinase CK-MB (CK-2) CK-MB (CK-2) Rel Index Troponin I NT-Pro-B Natriuret Pep Total Protein Albumin Globulin Albumin/Globulin Ratio Lipase SARS-CoV-2 (PCR) Assessment & Plan Assessment & Plan narrative: Atrial fibrillation with RVR. Patient was initially started on Cardizem drip by me earlier today he converted just recently. He is now on low-dose beta-blockers and blood pressure seems good. I am going to hold his Norvasc and will see how things go. Patient will get echo continue on tele and will be followed. Eliquis was started and will follow from there. Congestive heart failure. Possibly rate controlled although interestingly has so much symptoms at the lower heart rates. Will have to see what his echo shows. Patient got Lasix in the emergency room and seems to be having an okay response and will just have to follow. Patient understands. Will re-evaluate tomorrow morning. Hypertension. Blood pressure looks good now will continue losartan and will see how he responds with beta-ameya probably will need to go home on beta-ameya instead of amlodipine but will see how things go. Hyperlipidemia continue usual meds. Parkinson's actually patient is doing pretty well. Will continue his usual medicines. Reflux. Does not seem to be active. Should be at low risk. No treatment at this time. BPH. Will follow-up foot. Seems to be urinating well. Code status. Full. Discussed with patient and . GI prophylaxis no need at this time. DVT prophylaxis. Patient is on Eliquis now. Should be covered. Disposition. Possibly home tomorrow depending on how things go and his rate is controlled and stays out of AFib. Will see what echo and other tests show. Will need outpatient treadmill. 50 minutes spent with emergency room doctor family patient charting in orders. Quality VTE Deep Vein Thrombosis/Pulmonary Embolism Present on Admission: No
--- NOTE | 2023-03-05 18:27 | PC.NURSE ---
Day shift: Pt admitted to ICU, telemetry attached. Pt converted at 1725, provider Dr. Allen notified. Dilt gtt stopped, ECG obtained. Care ongoing.
[2023-03-05] MEDS: CARBIDOPA-LEVODOPA ER 50/200 TABLET 1 EACH PO (19:50)
[2023-03-05] MEDS: ROPINIROLE 2 MG 1 EACH PO (19:50)
[2023-03-05] MEDS: APIXABAN 5 MG TABLET PO (20:45)
[2023-03-05] MEDS: GABAPENTIN 300 MG CAPSULE PO (20:45)
[2023-03-05] MEDS: METOPROLOL IR 25 MG TABLET PO (20:45)
[2023-03-05] MEDS: TAMSULOSIN 0.4 MG CAPSULE PO (20:45)
[2023-03-05] MEDS: ATORVASTATIN 20 MG TABLET PO (20:45)
[2023-03-06] VITALS: BP 122/60; PULSE 53; RESP 20; TEMP 36.1; O2SAT 96
[2023-03-06] MEDS: CARBIDOPA-LEVODOPA ER 50/200 TABLET 1 EACH PO ×3 (01:51→11:30)
[2023-03-06 04:00] VITALS: BP 140/65; PULSE 74; RESP 20; TEMP 36.4; O2SAT 94
[2023-03-06 05:27] LABS: Alanine Aminotransferase 7 IU/L (<50); Albumin 3.6 g/dL (3.5-5.0); Albumin Globulin Ratio 1.4 (1.0-2.8); Alkaline Phosphatase 43 U/L (38-126); Aspartate Aminotransferase 29 IU/L (17-59); BUN Creatinine Ratio 17.1 (6-22); Bilirubin Total 0.6 mg/dL (0.2-1.3); Blood Urea Nitrogen 13 mg/dL (9-20); Calcium 8.4 mg/dL (8.4-10.2); Carbon Dioxide 30 mmol/L (22-32); Chloride 102 mmol/L (98-107); Estimated Glomerular Filt Rate > 60 mL/min (>60); Globulin 2.5 g/dL (1.7-4.1); Glucose 109 mg/dL (80-110); HEMOLYSIS < 15 (0-50); Potassium 3.7 mmol/L (3.4-5.1); Sodium 135 mmol/L (137-145); Total Protein 6.1 g/dL (6.3-8.2)
[2023-03-06 05:55] LABS: Thyroid Stimulating Hormone 1.36 uIU/mL (0.47-4.68)
--- NOTE | 2023-03-06 06:05 | PC.NURSE ---
Heart rate decreasing to 40-50's after first dose of lopressor. blood pressure stable.
[2023-03-06 08:15] VITALS: BP 140/65; PULSE 61; PULSE 66; RESP 18; TEMP 36.6; O2SAT 95
[2023-03-06] MEDS: METOPROLOL IR 25 MG TABLET PO (08:15)
[2023-03-06] MEDS: APIXABAN 5 MG TABLET PO (08:15)
[2023-03-06] MEDS: LOSARTAN 50 MG TABLET 100 MG PO (08:15)
[2023-03-06] MEDS: GABAPENTIN 300 MG CAPSULE PO (08:15)
[2023-03-06] MEDS: ROPINIROLE 4 MG 4 EACH PO (08:16)
--- NOTE | 2023-03-06 12:14 | P.DS_ITS ---
History of Present Illness History of Present Illness Date Patient Seen: 03/06/23 Time Patient Seen: 09:00 Date of Onset of Symptoms: 02/27/23 Chief complaint: sob, edema, new a flutter Narrative: Feeling better today converted on dig drip doing well on just metoprolol oral BP looks ok while holding amlodipine. echocardiogram unconcerning for acute process. Feeling stable on his feet able to ambulate to bathroom no trouble, appetite improving feels ready to go home. Discharge Providers Provider Date of admission: 03/05/23 13:22 Discharge Date: 03/06/23 Primary care physician: Jamie Reynoso MD Consults: cardiology Discharge provider: Jamie Reynoso MD Summary Hospital Course Discharge Diagnosis: #Atrial fibrillation with RVR #Chronic diastolic congestive heart failure, present on admission #Hypertension #Hyperlipidemia #Parkinson's #Reflux #BPH Hospital Course: Mr. Madden was admitted for emergent management of unstable heart rate in RVR. He did well with only a brief spell of time on digoxin drip before he converted back to normal sinus, he was started no eliquis and metoprolol while amlodipine was discontinued and this combination seemed to do well for him. Echocardiogram was obtained showing good ejection fraction. He reported feeling just fine again so he will go home to f/u [facility] cardiology adn PCP.; Status at Discharge Cognitive/behavioral status at discharge: at baseline, oriented Functional status at discharge: independent ambulation Overall status at discharge: patient is back to baseline Exam Vital Signs (past 8 hours): - 03/06/23 08:15 03/06/23 08:15 Temperature 97.8 F Pulse Rate 61 66 Respiratory Rate 18 Blood Pressure 140/65 140/65 Pulse Oximetry 95 Oxygen Flow Rate 0 Oxygen Delivery Method Room Air Oxygen Flow Rate 0 Narrative Exam Narrative: alert elder finishing Intensity Therapeutics Const General: healthy appearing, comfortable and well developed [facility] Head: normocephalic and atraumatic Resp Other: clear to auscultation bilaterally Cardio Other: regular rate and rhythm with occasional dropped beat GI Other: soft nontender nondistended Neuro General: patient alert, patient awake, patient oriented x3, tone normal and moves all extremities Extrem General: no pedal edema Objective Labs 03/05/23 10:53 03/06/23 04:44 Labs: Laboratory Results - last 24 hr 03/05/23 03/05/2303/06/23 13:16 15:45 04:44 ABG pH 7.43 ABG pCO2 41.3 ABG pO2 72 L ABG HCO3 28 H ABG Total CO2 29 H ABG O2 Saturation 95 ABG Base Excess 3.0 FiO2 21 Sodium 135 L Potassium 3.7 Chloride 102 Carbon Dioxide 30 BUN 13 Creatinine 0.76 Estimated GFR > 60 BUN/Creatinine Ratio 17.1 Glucose 109 Calcium 8.4 Magnesium 2.0 Total Bilirubin 0.6 AST 29 ALT 7 Alkaline Phosphatase 43 Total Protein 6.1 L Albumin 3.6 Globulin 2.5 Albumin/Globulin Ratio 1.4 TSH Nasal Screen MRSA (PCR) Cancelled 03/06/23 04:44 ABG pH ABG pCO2 ABG pO2 ABG HCO3 ABG Total CO2 ABG O2 Saturation ABG Base Excess FiO2 Sodium Potassium Chloride Carbon Dioxide BUN Creatinine Estimated GFR BUN/Creatinine Ratio Glucose Calcium Magnesium Total Bilirubin AST ALT Alkaline Phosphatase Total Protein Albumin Globulin Albumin/Globulin Ratio TSH 1.36 Nasal Screen MRSA (PCR) PFS Medical History Greater trochanteric bursitis of right hip Groin pain, chronic, right Hip pain Iliotibial band syndrome affecting right lower leg Low back pain Lumbosacral radiculopathy Other spondylosis with radiculopathy, lumbar region Spinal stenosis, lumbar region with neurogenic claudication Social History household members: spouse Smoking Status: Former smoker alcohol intake: never Discharge Assessment & Plan Assessment and Plan Assessment: #Atrial fibrillation with RVR s/p conversion on dig drip, continue metoprolol and hold amlodipine. will need cardiology f/u. s/p prior cardiac ablation ~20 years ago has been stable since. Eliquis was started and will follow from there. #Chronic diastolic congestive heart failure, present on admission doing well no crackles no pedal edema #Hypertension doing well exchanging metoprolol for amlodipine continue #Hyperlipidemia stable continue usual meds. #Parkinson's Patient is doing pretty well. Will continue his usual medicines. #Reflux. Does not seem to be active. Should be at low risk. No treatment at this time. #BPH Stable continue meds Dispo: d/c home to f/u with PCP and cardiology Code status. Full. Discussed with patient and . DVT prophylaxis: eliquis time spent : 35 min Discharge Plan Discharge Plan Patient Disposition: Home Provider Discharge Comment: stop amlodipine continue metoprolol tartrate bid f/u with cardiology Discharge orders & Medications Prescriptions: New metoprolol tartrate 25 mg Tablet 25 mg PO BID 30 Days Qty: 60 0RF Eliquis 5 mg Tablet 5 mg PO BID 30 Days Qty: 60 0RF Continued tamsulosin [Flomax] 0.4 MG capsule,extended release 24hr 0.4 mg PO BEDTIME Qty: 0 tadalafil [Cialis] 20 MG tablet 20 mg PO DAILY PRN (Reason: Urinary Retention) Qty: 0 losartan 100 mg tablet 100 mg PO DAILY ropinirole 4 mg tablet extended release 24 hr 4 mg PO DAILY Patient Comments: takes in am atorvastatin 20 mg tablet 20 mg PO BEDTIME ascorbic acid (vitamin C) 500 mg capsule 500 mg PO DAILY cholecalciferol (vitamin D3) 50 mcg (2,000 unit) capsule 50 mcg PO DAILY ropinirole 2 mg tablet 2 mg PO BEDTIME Rx Instructions: administer 1-3 hours before bedtime carbidopa-levodopa 50-200 mg tablet extended release 1 tab PO 5XD Patient Comments: 5 times per day Rx Instructions: 0200, 0800, 1200, 1600, 2000 gabapentin 300 mg capsule 300 mg PO .COMPLEX Qty: 90 2RF Rx Instructions: 300mg tid rasagiline 1 mg tablet 1 mg PO DAILY PROBIOTIC 1 tab PO DAILY docusate sodium [Colace] 100 mg capsule 100 mg PO DAILY PRN (Reason: Constipation) omega 0-iif-tqk-fish oil [Fish Oil] 60-90-500 mg capsule 1 cap PO DAILY Discontinued amlodipine 10 mg tablet 10 mg PO DAILY Follow up/Referrals: Jamie Reynoso MD [Primary Care Provider] - Diet/Activity/Treatments Diet: Diet as Tolerated Visit Report/Discharge Packet Stand Alone Forms: Patient Portal/API, Stroke Signs & Symptoms Discharge Data Primary Care Provider: Jamie Reynoso Attending Provider: Ortega Allen Admit Date/Time: 03/05/23 13:22 Discharges patient from system. Discharge Date/Time: 03/06/23 12:50 Quality VTE Deep Vein Thrombosis/Pulmonary Embolism Present on Admission: No
--- NOTE | 2023-03-06 12:39 | CM.DANOTE ---
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 Yes Advance Directives on File No History Provided By Patient,Significant Other, Medical Record Prior Living Arrangements House Household Members spouse Type of transporation used prior to Drives own vehicle admit Independent with ADL's Yes: SOB, poor activity tolerance Is patient alert and oriented? Yes Patient/Family Preference OP PT Therapy Barriers to Discharge No Comment Patient is an 83 yo M, presents with sob, edema, new a flutter, admitted OBS for echo and further work up PCP Jamie MARINO /[facility] Met w/patient and spouse, reviewed plan for discharge and patient eager to return home today. Patient denies needs for HH and explains he will continue to see his outpatient PT Dr Reynoso discharging patient home now , no needs from this CM team Discharge Plan Home Transportation Arrangement Spouse Referrals Initiated None needed
== END 2023-03-06 12:50 | disposition home or self-care (01) ==
LOC: ED 11:04 → AC 13:23 → ICU 15:02
PROVIDERS: Admitting Provider Family Medicine; Emergency Provider Emergency Medicine; PCP Family Medicine; Referring Provider Emergency Medicine; Visit Provider Family Medicine
DX: I48.20 Chronic atrial fibrillation, unspecified (principal); I11.0 Hypertensive heart disease with heart failure; I50.32 Chronic diastolic (congestive) heart failure; M54.16 Radiculopathy, lumbar region; G20 Parkinson's disease; K21.9 Gastro-esophageal reflux disease without esophagitis; E78.5 Hyperlipidemia, unspecified; N40.0 Benign prostatic hyperplasia without lower urinary tract symptoms; Z20.822 Contact with and (suspected) exposure to COVID-19
CPT/HCPCS: 36415; 36600; 71045; 80053; 82550; 82553; 82805; 83690; 83735; 83880; 84443; 84484; 85025; 85379; 85610; 85730; 87635; 93005; 93010; 93306; 96365; 96366; 96375; 99284; C9803; G0378; J1940; J3490

== ENCOUNTER → 2023-03-23 11:02 | Outpatient (CLI) | payer MEDICARE, OTHER, SELFPAY ==
[2023-03-05 13:27] VITALS: BMI 23.6
--- NOTE | 2023-03-23 11:05 | DI.MRI.S_ITS ---
PROCEDURE: MR LUMBAR SPINE WO/W CON INDICATIONS: Right psoas mass, neurogenic claudication TECHNIQUE: Noncontrast sagittal T1 spin echo and T2 fast spin echo, sagittal STIR, axial T1 and T2 fast spin echo through the lumbar spine. In cases with scoliosis, additional coronal T2 fast spin echo may be performed. After the administration of contrast, sagittal and axial T1 spin echo with fat saturation through the lumbar spine. COMPARISON: [facility], CR, XR LUMBAR SPINE WITH OBLIQUES PLUS FLEXION EXTENSION, 11/21/2021, 13:55. [facility], MR, MR LUMBAR SPINE WO/W CON, 09/21/2022, 11:28. FINDINGS: Image quality: Excellent. Alignment and curvature: 5 lumbar type vertebral bodies are present by plain film. 2 mm of anterolisthesis of L3 on L4. 6 mm of retrolisthesis of L5 on S1. Marrow: Marrow is of normal overall signal. No acute vertebral body compression fractures. No suspicious marrow enhancement. Mild reactive signal throughout the endplates of the lumbar and lower thoracic spine. Spinal cord: Conus medullaris terminates at the lower L1 level. Visualized spinal cord demonstrates normal signal, without suspicious enhancement. Paraspinous soft tissues: The multinodular high T2 enhancing focus within the posterior aspect of the right psoas muscle at the level L5-S1 is not significantly changed in size. The 2 dominant nodules measure roughly 10 mm diameter each, as before. T12-L1: Mild disc desiccation and diffuse disc bulge no significant canal nor foraminal stenosis. L1-L2: Mild disc desiccation and diffuse disc bulge. Mild facet and ligamentum flavum hypertrophy. No significant canal nor foraminal stenosis. No significant change. L2-L3: Mild disc desiccation and diffuse disc bulge. Mild facet and ligamentum flavum hypertrophy. Mild epidural lipomatosis. Mild canal stenosis. Mild bilateral foraminal stenosis. No significant change. L3-L4: Mild disc desiccation and diffuse disc bulge. Mild facet and ligamentum flavum hypertrophy. Mild epidural lipomatosis. Mild canal stenosis. Moderate bilateral foraminal stenosis. No significant change. L4-L5: Moderate disc desiccation. Mild disc height loss and diffuse disc bulge. Mild facet and ligamentum flavum hypertrophy. Mild canal stenosis. Moderate left greater than right foraminal stenosis. No significant change. L5-S1: Severe disc height loss and desiccation. Mild diffuse disc bulge. Mild bilateral facet hypertrophy. Mild canal stenosis. Moderate bilateral foraminal stenosis. No significant change. IMPRESSION: 1. No change in right psoas mass. 2. Multilevel degenerative disc and facet disease, as well as ligamentum flavum hypertrophy and epidural lipomatosis. 3. Mild multilevel canal stenosis. 4. Multilevel foraminal stenoses, worst at L3-L4, L4-L5, and L5-S1 where there are moderate foraminal stenoses. Dictated by: Danielle Osullivan M.D. on 03/25/2023 at 9:37 Approved by: Danielle Osullivan M.D. on 03/25/2023 at 9:51
== END ==
PROVIDERS: PCP Family Medicine; Referring Provider Anesthesiology; Visit Provider Anesthesiology
DX: M62.89 Other specified disorders of muscle (principal); M47.26 Other spondylosis with radiculopathy, lumbar region; M47.27 Other spondylosis with radiculopathy, lumbosacral region; M51.16 Intervertebral disc disorders with radiculopathy, lumbar region; M51.17 Intervertebral disc disorders with radiculopathy, lumbosacral region; M48.062 Spinal stenosis, lumbar region with neurogenic claudication; M48.07 Spinal stenosis, lumbosacral region
CPT/HCPCS: 72158; A9579

== ENCOUNTER 2023-04-17 10:49 | Outpatient (CLI) | payer MEDICARE, OTHER, SELFPAY ==
[2023-03-05 13:27] VITALS: BMI 23.6
--- NOTE | 2023-04-17 10:50 | DI.RAD.S_ITS ---
PROCEDURE: PAIN L INTERLAMINAR/CAUDAL INJ INDICATIONS: SPONDYLOSIS COMPARISON: [facility], MR, MR LUMBAR SPINE WO/W CON, 03/23/2023, 11:19. [facility], XA, PAIN L INTERLAMINAR/CAUDAL INJ, 01/17/2023, 16:28. FINDINGS: Fluoroscopic spot filming was performed to verify placement of spinal needles at the L5-S1 epidural space, as labeled on the films. Appropriate location of the needle tip was confirmed by injection of iodinated contrast. IMPRESSION: Intraprocedural examination demonstrates appropriate needle position. Approved by: Kayden Nevarez M.D. on 04/17/2023 at 14:13
[2023-04-17 11:00] VITALS: BP 134/87; PULSE 100; RESP 16; TEMP 36.4; O2SAT 97
[2023-04-17 11:17] VITALS: BP 147/107; PULSE 96; RESP 23; O2SAT 99
[2023-04-17] MEDS: IOPAMIDOL 15 ML VIAL 3 ML INJ (11:17)
[2023-04-17] MEDS: DEXAMETHASONE 10 MG/ML VIAL 20 MG INJ (11:18)
[2023-04-17] MEDS: BUPIVACAINE 0.25% (PF) VIAL 2 ML INJ (11:18)
[2023-04-17 11:22] VITALS: BP 160/110; PULSE 88; RESP 18; O2SAT 100
[2023-04-17 11:25] VITALS: BP 159/96; PULSE 85; RESP 19; O2SAT 100
[2023-04-17 11:33] VITALS: BP 145/87; PULSE 94; RESP 18; O2SAT 99
--- NOTE | 2023-04-17 11:41 | P.PCN_ITS ---
Date/Time/Diagnoses Date of procedure: 04/17/23 Time of procedure: 11:30 Procedure Notes Physician: Kervin Ambrose Total Fluoroscopy time (seconds): 14 Total sedation minutes: 0 Procedure in detail & Post-procedure care: L5-S1 Interlaminar Epidural Steroid Injection Indications: Guillermo is presenting for treatment of lumbar radiculopathy with low back and leg pain. Preoperative diagnosis: Lumbar radiculopathy Postoperative diagnosis: Same Focused Examination: Ax3 Mood and affect are normal Vital Signs: VSS Consent: Following review of allergies and potential side effects/complications, including, but not necessarily limited to, infection, allergic reaction, local tissue breakdown, stroke, temporary or permanent nerve injury, paralysis, and possible , the patient indicated that they understood and agreed to proceed.? An informed consent document was signed by the patient, witnessed by a nurse and placed in the patient's chart.? Additionally, other treatment options including medications and physical therapy were reviewed with the patient. All questions were answered. Site was then marked. Anesthesia: Local Position: Prone Monitoring: NIBP, Pulse oximetry, 3 lead EKG Needle used: 18 G 3.5? Tuohy Contrast: Isovue 300M Injectate: Dexamethasone 15 mg with 0.25% Bupivacaine 1.5 mL Technique: The skin was prepped with chloraprep and then draped in a sterile fashion. Time out was performed as per protocol. Oxygen applied via NC. Skin and subcutaneous structures of the needle entry site was then infiltrated with 3 mL of lidocaine 1%. Under AP, lateral and contralateral oblique fluoroscopic control, the Tuohy needle was guided into the L5-S1 epidural space. The space was accessed with loss of resistance technique. Isovue 300M was then injected and the spread was consistent with the epidural space. There was no evidence for intravascular or intrathecal uptake. After negative aspiration, the above- mentioned injectate was then slowly administered and the needle withdrawn. The patient expressed no unusual discomfort or paresthesias during the injection. Band-Aids applied to injection sites. EBL: less than 1 ml Complications: None Post Procedure: Patient was taken to the recovery and monitored. The patient was provided a Pain Log to continue to record the patient's response to the target- specific procedure prior to the patient's follow-up visit with the referring physician. Patient was stable upon discharge. Detailed post procedure instructions were provided. Patient was asked to call in the event of worsening pain, fever, weakness, numbness or bladder or bowel incontinence.
== END 2023-04-17 11:35 | disposition home or self-care (01) ==
PROVIDERS: PCP Family Medicine; Referring Provider Anesthesiology; Visit Provider Anesthesiology
DX: M54.16 Radiculopathy, lumbar region (principal)
CPT/HCPCS: 62323; J1100; J3490

== ENCOUNTER → 2023-07-04 14:51 | Outpatient (CLI) | payer MEDICARE, OTHER, SELFPAY ==
[2023-03-05 13:27] VITALS: BMI 23.6
[2023-07-04 16:02] LABS: BUN Creatinine Ratio 17.3 (6-22); Blood Urea Nitrogen 14 mg/dL (9-20); Carbon Dioxide 30 mmol/L (22-32); Chloride 102 mmol/L (98-107); Estimated Glomerular Filt Rate > 60 mL/min (>60); Glucose 99 mg/dL (80-110); HEMOLYSIS < 15 (0-50); Potassium 4.2 mmol/L (3.4-5.1); Sodium 139 mmol/L (137-145)
== END ==
PROVIDERS: PCP Family Medicine; Referring Provider Internal Medicine Cardiovascular Disease; Visit Provider Internal Medicine Cardiovascular Disease
DX: I10 Essential (primary) hypertension (principal)
CPT/HCPCS: 36415; 80048

== ENCOUNTER → 2023-08-09 10:33 | Outpatient (CLI) | payer MEDICARE, OTHER, SELFPAY ==
[2023-03-05 13:27] VITALS: BMI 23.6
--- NOTE | 2023-08-09 10:34 | DI.MRI.S_ITS ---
PROCEDURE: MR PELIS WO/W CON INDICATIONS: Right psoas cystic mass TECHNIQUE: Noncontrast coronal T1 spin echo and STIR, sagittal T1 spin echo with fat saturation and STIR, axial T1 spin echo and T2 fast spin echo with fat saturation. After the administration of contrast, axial/sagittal/coronal T1 spin echo with fat saturation through the pelvis . COMPARISON: [facility], MR, MR PELVIS WO/W CON, 02/26/2022, 9:25. FINDINGS: Image quality: Motion degraded Bones: Degenerative changes of the spine, better seen on dedicated recent spine images. No suspicious osseous enhancement. Soft tissues: Evaluation is degraded by motion artifact. There is substantial prostatomegaly and sequela of BPH, not well assessed on this non dedicated study. Consider correlation with PSA. The bladder is under distended. No small bowel obstruction or drainable abscess/ascites within the peritoneal cavity. No aneurysmal vessel identified multi lobular cystic lesion in the right iliopsoas again seen, measuring about 2.3 x 1.3 centimeters. 10/21. Signal intensity is similar to prior. IMPRESSION: Similar iliopsoas multi lobulated T2 hyperintense lesion compared to 02/26/2022. Etiology is still uncertain, but stability is reassuring. Continue follow-up may be obtained at clinical discretion. Dictated by: Vincent Ashton M.D. on 08/09/2023 at 12:50 Approved by: Vincent Ashton M.D. on 08/09/2023 at 12:57
== END ==
PROVIDERS: PCP Family Medicine; Referring Provider Physical Medicine & Rehabilitation; Visit Provider Physical Medicine & Rehabilitation
DX: M62.89 Other specified disorders of muscle (principal)
CPT/HCPCS: 72197; A9579

== ENCOUNTER 2023-09-29 09:35 | Emergency (ER) | payer MEDICARE, OTHER, SELFPAY ==
[2023-03-05 13:27] VITALS: BMI 23.6
[2023-09-29] VITALS (23 sets, daily range): BP systolic 141–251; BP diastolic 68–112; PULSE 59–75; RESP 16–26; TEMP 36.6; O2SAT 94–97
--- NOTE | 2023-09-29 09:36 | DI.CT.S_ITS ---
PROCEDURE: CT STROKE INDICATIONS: Positive BE-FAST, Stroke symptoms TECHNIQUE: Noncontrast 4.5 mm thick angled axial sections acquired from the foramen magnum to the vertex, with coronal reformats. For radiation dose reduction, the following was used: automated exposure control, adjustment of mA and/or kV according to patient size. COMPARISON: None. FINDINGS: Image quality: Excellent. Brain and CSF: Hyperdense intraparenchymal blood products are seen in the left temporal lobe measuring approximately 6.7 x 3.6 x 4.4 cm. Additional smaller focus of intraparenchymal hemorrhage is seen in the posterior temporal lobe measuring 1.7 x 1.1 by 0.8 cm. There is mass effect on the surrounding brain parenchyma with effacement of the left lateral ventricle and approximately 0.4 cm of rightward midline shift. There is superior displacement of the left sylvian fissure. Hyperdense blood products are seen in the atrium and temporal horn of the left lateral ventricle. No definite subdural or subarachnoid blood products identified. Basilar cisterns are patent. Mild intracranial atherosclerotic calcifications. Mild chronic microvascular ischemic changes. Skull and face: Calvarium and visualized facial bones appear intact, without suspicious lesions. Sinuses: Visualized sinuses and mastoids are clear. IMPRESSION: 1. Moderate to large intraparenchymal hemorrhage within the left temporal lobe. 2. Mass effect with effacement of the left lateral ventricle and 0.4 cm of rightward midline shift. 3. Intraventricular extension of blood products, likely due to direct extension into the temporal horn of the left lateral ventricle. No definite subarachnoid or subdural blood products. Call was placed to the referring physician on 09/29/2023 at 10:05 AM, and Dr. Ivey is aware of the pertinent findings per ED staff. This study fulfills neurological imaging criteria for inclusion or exclusion of acute stroke therapies based on available published neurological guidelines. Approved by: Kayden Nevarez M.D. on 09/29/2023 at 10:07
--- NOTE | 2023-09-29 09:36 | DI.CT.S_ITS ---
PROCEDURE: CT ANGIO HEAD AND NECK INDICATIONS: confussion TECHNIQUE: After the administration of intravenous contrast, 1 mm thick sections acquired from the aortic arch through the [place] of [place]. 3-dimensional fwdrgcz-aumowagle-bvyskfdckx (MIP) and/or volume rendering reformats were acquired of the central intracranial vasculature and neck separately. For radiation dose reduction, the following was used: automated exposure control, adjustment of mA and/or kV according to patient size. COMPARISON: [facility], CT, CT STROKE, 09/29/2023, 9:42. FINDINGS: Image quality: Diagnostic. BRAIN: CSF spaces: Ventricles are normal in size and shape. Basal cisterns are patent. No extra-axial fluid collections. Brain: Large left intraparenchymal hemorrhage within the left temporal lobe with mass effect upon the adjacent parenchyma and effacement of lateral ventricle. Hyperdense blood products within the left temporal horn and atria. Rightward midline shift. Skull and face: Calvarium and facial bones appear intact, without suspicious lesions. Orbits appear normal. Sinuses: Sinuses and mastoids are clear. HEAD CT ANGIOGRAPHY: Anterior circulation: Intracranial internal carotid arteries are normal in size and flow. The flow within the paired anterior cerebral arteries is normal and symmetric. The flow within the middle cerebral arteries is normal and symmetric. The anterior communicating artery is seen. No aneurysms are seen. Posterior circulation: Visualized portions of the vertebral arteries demonstrate normal caliber, and join to form a normal appearing basilar artery. Flow within the posterior cerebral arteries is normal and symmetric. No aneurysms are seen. Left side dominant. NECK CT ANGIOGRAPHY: Carotid system: The great vessels demonstrate a conventional anatomy as they arise from the aortic arch. The origins of the common carotid arteries appear patent. The common carotid arteries demonstrate normal caliber and courses. The bifurcation regions are both widely patent. The internal carotid arteries demonstrate normal calibers and courses. Posterior circulation: The origins of the vertebral arteries both appear widely patent. The more superior extracranial portions of both vertebral arteries also demonstrate normal courses and calibers. They join to form a normal appearing basilar artery. Left side dominant. Soft tissues: Visualized neck soft tissues demonstrate no suspicious abnormalities. Bones: No suspicious bony lesions. Visualized cervical spine appears normally aligned. IMPRESSION: 1. Left temporal lobe intraparenchymal hemorrhage with blood products in the lateral ventricle and midline shift is unchanged. 2. No vascular aneurysm, stenosis, occlusion, or dissection identified Any quantitative measurements of stenosis were performed using NASCET criteria. Dictated by: Jacoby Gama M.D. on 09/29/2023 at 9:15 Approved by: Jacoby Gama M.D. on 09/29/2023 at 9:22
--- NOTE | 2023-09-29 09:36 | DI.RAD.S_ITS ---
PROCEDURE: XR CHEST 1V INDICATIONS: Possible stroke TECHNIQUE: One view of the chest was acquired. COMPARISON: [facility], CR, XR CHEST 1V, 03/05/2023, 10:48. FINDINGS: Surgical changes and devices: None. Lungs and pleura: Lungs are clear. No pleural effusions or pneumothorax. Mediastinum: Mediastinal contours appear normal. Heart size is normal. Bones and chest wall: No suspicious bony lesions. Overlying soft tissues appear unremarkable. IMPRESSION: No acute cardiopulmonary abnormality is seen. Dictated by: Jacoby Gama M.D. on 09/29/2023 at 9:11 Approved by: Jacoby Gama M.D. on 09/29/2023 at 9:15
--- NOTE | 2023-09-29 09:42 | ED_ITS ---
HPI - Neuro Symptoms/Deficit General Chief Complaint: Neuro Symptoms/Deficit Stated Complaint: Lethargic Time Seen by Provider: 09/29/23 09:37 Source: patient, EMS, RN notes reviewed and old records reviewed Mode of arrival: EMS Limitations: altered mental status History of Present Illness HPI Narrative: 83-year-old male history of atrial fibrillation on apixaban, dyslipidemia, Parkinson's, hypertension who presents with complaint of altered mental status and concern for stroke. Patient had was last seen normal at 10:00 p.m. last night on 09/28/2023 by family. When he awoke this morning was mumbling he is normally conversant, he does speak Scottish. He normally ambulates and has been able to follow fast exam. Glucose was 109 in the field with EMS he was quite hypertensive in the tooth 30s. Patient does respond to verbal stimuli can tell me he knows his name but does not actually answer it. He does try to squeeze for commands he will wiggle his feet but does not lift or move his arms. He sort of tries to smile but does not actually smile or follow other commands. He is unable to give additional history. No other reports of fevers, no nausea or vomiting other GI or urinary symptoms recently. Was reportedly well last night per family and has been weak, and mumbling today. No known drug allergies. Former smoker, occasional alcohol, no recreational drugs. Dr. Reynoso is his physician. On Anticoagulants: Yes Related Data Home Medications Medication Instructions Recorded Confirmed tadalafil 20 mg tablet (Cialis) 20 mg PO DAILY PRN Urinary 07/19/16 07/31/23 Retention ##0 tamsulosin 0.4 mg capsule (Flomax) 0.4 mg PO BEDTIME ##0 07/19/16 07/31/23 ascorbic acid (vitamin C) 500 mg 500 mg PO DAILY 10/08/22 07/31/23 capsule atorvastatin 20 mg tablet 20 mg PO BEDTIME 10/08/22 07/31/23 cholecalciferol (vitamin D3) 50 50 mcg PO DAILY 10/08/22 07/31/23 mcg (2,000 unit) capsule losartan 100 mg tablet 100 mg PO DAILY 10/08/22 07/31/23 ropinirole 4 mg tablet,extended 4 mg PO DAILY 10/08/22 07/31/23 release 24 hr PROBIOTIC 1 tab PO DAILY 02/13/23 07/31/23 carbidopa ER 50 mg-levodopa 200 mg 1 tab PO 5XD 02/13/23 07/31/23 tablet,extended release docusate sodium 100 mg capsule 100 mg PO DAILY PRN Constipation 02/13/23 07/31/23 (Colace) ropinirole 2 mg tablet 2 mg PO BEDTIME 02/13/23 07/31/23 apixaban 5 mg tablet (Eliquis) 5 mg PO BID 04/11/23 07/31/23 metoprolol succinate 25 mg 25 mg PO DAILY 04/11/23 07/31/23 tablet,extended release 24 hr spironolactone 25 mg tablet 25 mg PO DAILY 04/11/23 07/31/23 furosemide 20 mg tablet 20 mg PO ONCE PRN edema 05/13/23 07/31/23 metoprolol succinate 50 mg 50 mg PO DAILY 07/31/23 07/31/23 tablet,extended release 24 hr naltrexone 4.5 mg capsule (Naltrex) 4.5 mg PO .PRN 07/31/23 07/31/23 rasagiline 0.5 mg tablet 0.5 mg PO DAILY 07/31/23 07/31/23 rasagiline 1 mg tablet 1 mg PO DAILY 07/31/23 07/31/23 Previous Rx's Medication Instructions Recorded gabapentin 300 mg capsule 300 mg PO TID #240 caps 09/23/23 Allergies Allergy/AdvReac Type Severity Reaction Status Date / Time No Known Drug Allergies Allergy Verified 07/31/23 08:49 Review of Systems Review of Systems ROS Unobtainable: All systems reviewed & are unremarkable except as noted in HPI and below Hematologic/Lymphatic On Anticoagulants: Yes Patient History Medical History Mass of psoas muscle Greater trochanteric bursitis of right hip Lumbosacral radiculopathy Groin pain, chronic, right Hip pain Iliotibial band syndrome affecting right lower leg Spinal stenosis, 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 HEENT: Atraumatic, pupils are equal round reactive to light, extraocular movements are intact, nares are clear, there is no conjunctival pallor. Throat is clear without any exudates, erythema, tonsillar enlargement or uvular deviation, no obvious facial droop but patient does not really smile on command. HEART: Regular rate and rhythm without murmur, clicks, rubs. 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 He will plantar dorsiflex with his feet without issue bilaterally but does not lift his legs to evaluate for strength. NEURO:CN 2-12 intact, sensation normal, reflexes 2/4 upper and lower extremities. Unable to obtain finger-nose or heel-cadena from patient. SKIN: No rash, erythema or other skin color changes. Initial Vital Signs Initial Vital Signs: Vital Signs Temperature 97.8 F 09/29/23 09:39 Pulse Rate 63 09/29/23 09:39 Respiratory Rate 18 09/29/23 09:39 Blood Pressure 245/111 H 09/29/23 09:39 Pulse Oximetry 96 09/29/23 09:39 Oxygen Delivery Method Room Air 09/29/23 09:39 Course Orders Ordered: ED Orders 09/29/23 09:[address] angio head and neck Stat XR chest 1V Stat 09/29/23 09:41 Complete Blood Count AUTO DIFF Stat Comprehensive Metabolic Panel Stat Magnesium Stat PTT Partial Thromboplastin Jeremiah Stat Prothrombin Time INR Stat Troponin & CK Cardiac Panel Stat 09/29/23 10:17 EKG-12 Lead Stat 09/29/23 10:42 Urine Drug Screen, Rapid Stat Discontinued Medications Nicardipine HCl 25 mg/ Sodium (Chloride) 250 mls @ 50 mls/hr IV TITRATE DULCE; Protocol Last Titration: 09/29/23 10:38 Dose: 10 mg/hr, 100 mls/hr Documented By: Titration: 09/29/23 10:27 Dose: 7.5 mg/hr, 75 mls/hr Documented By: Admin: 09/29/23 10:12 Dose: 5 mg/hr, 50 mls/hr Documented By: SHANDA Prothrombin Complex Concent ( Human) 2,000 unit/Miscellaneous 80 mls @ 473.544 mls/hr IV NOW ONE; Protocol Stop: 09/29/23 10:26 Last Infusion: 09/29/23 10:49 Dose: Infused Documented By: Admin: 09/29/23 10:31 Dose: 3 unit/kg/min, 473.544 mls/hr Documented By: BRAYDEN Labetalol HCl (Labetalol 20 Mg/4 Ml Syringe) 10 mg IV NOW ONE Stop: 09/29/23 09:50 Last Admin: 09/29/23 09:55 Dose: 10 mg Documented By: SHANDA Ondansetron HCl (Ondansetron 4 Mg/2 Ml Inj) 4 mg IV NOW PRN PRN Reason: Nausea And Vomiting Ondansetron HCl (Ondansetron 4 Mg Odt) 4 mg SL NOW PRN PRN Reason: Nausea And Vomiting Vital Signs Vital signs: Vital Signs - 8 hr 09/29/23 09:39 09/29/23 09:40 09/29/23 09:41 Temperature 97.8 F Pulse Rate 63 63 Respiratory Rate 18 16 Blood Pressure 245/111 H 245/111 H Pulse Oximetry 96 Oxygen Delivery Method Room Air 09/29/23 09:55 09/29/23 09:55 09/29/23 09:55 Temperature Pulse Rate 64 65 Respiratory Rate 19 Blood Pressure 251/112 H 251/112 H Pulse Oximetry 95 Oxygen Delivery Method Room Air 09/29/23 10:00 09/29/23 10:03 09/29/23 10:03 Temperature Pulse Rate 61 61 Respiratory Rate 17 22 Blood Pressure 238/111 H Pulse Oximetry 96 96 Oxygen Delivery Method Room Air 09/29/23 10:09 09/29/23 10:09 09/29/23 10:13 Temperature Pulse Rate 59 L Respiratory Rate 22 Blood Pressure 229/95 H 232/103 H Pulse Oximetry 96 Oxygen Delivery Method 09/29/23 10:13 09/29/23 10:15 09/29/23 10:15 Temperature Pulse Rate 59 L 61 Respiratory Rate 20 20 Blood Pressure 244/105 H Pulse Oximetry 95 95 Oxygen Delivery Method Room Air 09/29/23 10:20 09/29/23 10:20 09/29/23 10:25 Temperature Pulse Rate 65 Respiratory Rate 21 Blood Pressure 235/106 H 217/100 H Pulse Oximetry 95 Oxygen Delivery Method 09/29/23 10:25 09/29/23 10:25 09/29/23 10:31 Temperature Pulse Rate 75 68 Respiratory Rate 26 H Blood Pressure 217/100 H 221/88 H Pulse Oximetry 97 Oxygen Delivery Method 09/29/23 10:31 09/29/23 10:37 09/29/23 10:37 Temperature Pulse Rate 67 68 Respiratory Rate 23 22 Blood Pressure 176/73 H Pulse Oximetry 97 94 Oxygen Delivery Method Room Air Room Air 09/29/23 10:41 09/29/23 10:41 09/29/23 10:45 Temperature Pulse Rate 70 Respiratory Rate 23 Blood Pressure 173/72 H 162/76 H Pulse Oximetry 96 Oxygen Delivery Method Room Air 09/29/23 10:45 09/29/23 10:50 09/29/23 10:50 Temperature Pulse Rate 69 69 Respiratory Rate 19 20 Blood Pressure 156/72 H Pulse Oximetry 95 96 Oxygen Delivery Method Room Air 09/29/23 10:54 09/29/23 10:55 09/29/23 10:55 Temperature Pulse Rate 71 71 Respiratory Rate 18 19 Blood Pressure 155/72 H Pulse Oximetry 94 95 Oxygen Delivery Method Room Air Room Air 09/29/23 11:00 09/29/23 11:00 09/29/23 11:04 Temperature Pulse Rate 70 71 Respiratory Rate 16 21 Blood Pressure 151/68 H Pulse Oximetry 96 95 Oxygen Delivery Method 09/29/23 11:05 09/29/23 11:05 09/29/23 11:09 Temperature Pulse Rate 71 70 Respiratory Rate 19 20 Blood Pressure 145/68 H Pulse Oximetry 96 96 Oxygen Delivery Method Room Air 09/29/23 11:10 09/29/23 11:10 Temperature Pulse Rate 71 Respiratory Rate 20 Blood Pressure 141/68 H Pulse Oximetry 95 Oxygen Delivery Method MDM - Neuro Symptoms/Deficit Lab Data 09/29/23 09:41 09/29/23 09:41 Labs: Lab Results 09/29/23 09/29/23 Range/Units 09:41 10:42 WBC 8.1 (4.5-11.0) X10^3/uL RBC 4.67 (4.5-5.9) X10^6/uL Hgb 13.9 (13.5-17.5) g/dL Hct 40.6 L (41-53) % MCV 87.0 (80-100) fL MCH 29.8 (26-34) PG MCHC 34.3 (30-36) % RDW 14.5 (11.6-14.8) % Plt Count 297 (150-400) X10^3/uL Neut % (Auto) 73.7 (50-75) % Lymph % (Auto) 20.2 L (25-40) % [place] % (Auto) 3.6 (3-14) % Eos % (Auto) 1.9 L (2-4) % Baso % (Auto) 0.6 (0-2) % Neut # (Auto) 6000 (0545-6310) /uL Lymph # (Auto) 1600 (4418-1854) /uL [place] # (Auto) 300 (0-900) /uL Eos # (Auto) 200 (0-450) /uL Baso # (Auto) 0 (0-100) /uL PT 13.7 H (10.1-12.7) SECONDS INR 1.2 (0.9-1.3) APTT 40 H (26-36) SECONDS Sodium 136 L (137-145) mmol/L Potassium 3.9 (3.4-5.1) mmol/L Chloride 102 (98-107) mmol/L Carbon Dioxide 28 (22-32) mmol/L BUN 14 (9-20) mg/dL Creatinine 0.71 (0.66-1.25) mg/dL Estimated GFR > 60 (>60) mL/min BUN/Creatinine Ratio 19.7 (6-22) Glucose 127 H (80-110) mg/dL Calcium 9.3 (8.4-10.2) mg/dL Magnesium 1.8 (1.6-2.3) mg/dL Total Bilirubin 1.0 (0.2-1.3) mg/dL AST 46 (17-59) IU/L ALT 5 (<50) IU/L Alkaline Phosphatase 49 (38-126) U/L Total Creatine Kinase 110 (55-170) U/L Troponin I < 0.012 (0.01-0.034) ng/mL Total Protein 7.1 (6.3-8.2) g/dL Albumin 4.1 (3.5-5.0) g/dL Globulin 3.0 (1.7-4.1) g/dL Albumin/Globulin Ratio 1.4 (1.0-2.8) U Opiates 300ng/mL cut Negative (Negative) Ur Oxycodone Screen Negative (Negative) Urine Methadone Screen Negative (Negative) Ur Barbiturates Screen Negative (Negative) U Tricyclic Antidepress Negative (Negative) Ur Phencyclidine Scrn Negative (Negative) Ur Amphetamines Screen Negative (Negative) U Methamphetamines Scrn Negative (Negative) Ur MDMA Scrn (Ecstasy) Negative (Negative) U Benzodiazepines Scrn Negative (Negative) Urine Cocaine Screen Negative (Negative) U Marijuana (THC) Screen Negative (Negative) Imaging Data CT scan - head: My Impression: Large acute bleed proximally 6 cm x 4 cm at maximum size in the left hemisphere appears to likely be intraparenchymal. Radiologist's Impression: [place] [address] CT Scan Report Signed Patient: Cesar Madden MR#: [id number] : 1940 Acct:[id number] Age/Sex: 83 / M Date of Service: 09/29/23 Loc: ED Accession Number: [id number] Procedure: CT Stroke Ordering Provider: Viji Ivey D.O. PROCEDURE: CT STROKE INDICATIONS: Positive BE-FAST, Stroke symptoms TECHNIQUE: Noncontrast 4.5 mm thick angled axial sections acquired from the foramen magnum to the vertex, with coronal reformats. For radiation dose reduction, the following was used: automated exposure control, adjustment of mA and/or kV according to patient size. COMPARISON: None. FINDINGS: Image quality: Excellent. Brain and CSF: Hyperdense intraparenchymal blood products are seen in the left temporal lobe measuring approximately 6.7 x 3.6 x 4.4 cm. Additional smaller focus of intraparenchymal hemorrhage is seen in the posterior temporal lobe measuring 1.7 x 1.1 by 0.8 cm. There is mass effect on the surrounding brain parenchyma with effacement of the left lateral ventricle and approximately 0.4 cm of rightward midline shift. There is superior displacement of the left sylvian fissure. Hyperdense blood products are seen in the atrium and temporal horn of the left lateral ventricle. No definite subdural or subarachnoid blood products identified. Basilar cisterns are patent. Mild intracranial atherosclerotic calcifications. Mild chronic microvascular ischemic changes. Skull and face: Calvarium and visualized facial bones appear intact, without suspicious lesions. Sinuses: Visualized sinuses and mastoids are clear. IMPRESSION: 1. Moderate to large intraparenchymal hemorrhage within the left temporal lobe. 2. Mass effect with effacement of the left lateral ventricle and 0.4 cm of rightward midline shift. 3. Intraventricular extension of blood products, likely due to direct extension into the temporal horn of the left lateral ventricle. No definite subarachnoid or subdural blood products. Call was placed to the referring physician on 09/29/2023 at 10:05 AM, and Dr. Ivey is aware of the pertinent findings per ED staff. This study fulfills neurological imaging criteria for inclusion or exclusion of acute stroke therapies based on available published neurological guidelines. Approved by: Kayden Nevarez M.D. on 09/29/2023 at 10:07 CTA - brain/neck: Radiologist's Impression: Cesar Madden?(Guillermo)??83??M??1940 ? Allergy/Adv: No Known Drug Allergies (More??) Close Head/Neck CTA (Signed) Jacoby Gama - 09/29/23 Chest X-Ray (Signed) Jacoby Gama - 09/29/[address] (Signed) Kayden Nevarez - 09/29/23 Pelvis MRI (Signed) Vincent Ashton - 08/09/23 Injection Lumbar, Sacrum (Signed) Kayden Nevarez - 04/17/23 Lumbar Spine MRI (Signed) Danielle Osullivan - 03/23/23 Echocardiogram Ultrasound (Signed) Sin Pedersen - 03/05/23 Telemetry Strips 03/05/23 Chest X-Ray (Signed) Bobby Reyes - 03/05/23 Injection Lumbar, Sacrum (Signed) Kayden Nevarez - 01/17/23 Injection Lumbar, Sacrum (Signed) Kartik Call - 11/22/22 Hip X-Ray (Signed) Larose,Kayden - 10/29/22 Lumbar Spine MRI (Signed) Tez Marcos - 09/21/22 Pelvis MRI (Signed) Kayden Nevarez - 02/26/22 Lumbar Spine MRI (Signed) Pepe Reyesic - 11/30/21 Orbits/Face/Neck MRI (Signed) Bernardo Ramírez - 12/11/19 Launch?Image [address] [address] [address] Scan Report Signed Patient: Cesar Madden MR#: [id number] : 1940 Acct:[id number] Age/Sex: 83 / M Date of Service: 09/29/23 Loc: ED Accession Number: [id number] Procedure: CT angio head and neck Ordering Provider: Viji Ivey D.O. PROCEDURE: CT ANGIO HEAD AND NECK INDICATIONS: confussion TECHNIQUE: After the administration of intravenous contrast, 1 mm thick sections acquired from the aortic arch through the [place] of [place]. 3-dimensional ypyzkzs-ztventiwf-bhfmtsnyiz (MIP) and/or volume rendering reformats were acquired of the central intracranial vasculature and neck separately. For radiation dose reduction, the following was used: automated exposure control, adjustment of mA and/or kV according to patient size. COMPARISON: [facility], CT, CT STROKE, 09/29/2023, 9:42. FINDINGS: Image quality: Diagnostic. BRAIN: CSF spaces: Ventricles are normal in size and shape. Basal cisterns are patent. No extra-axial fluid collections. Brain: Large left intraparenchymal hemorrhage within the left temporal lobe with mass effect upon the adjacent parenchyma and effacement of lateral ventricle. Hyperdense blood products within the left temporal horn and atria. Rightward midline shift. Skull and face: Calvarium and facial bones appear intact, without suspicious lesions. Orbits appear normal. Sinuses: Sinuses and mastoids are clear. HEAD CT ANGIOGRAPHY: Anterior circulation: Intracranial internal carotid arteries are normal in size and flow. The flow within the paired anterior cerebral arteries is normal and symmetric. The flow within the middle cerebral arteries is normal and symmetric. The anterior communicating artery is seen. No aneurysms are seen. Posterior circulation: Visualized portions of the vertebral arteries demonstrate normal caliber, and join to form a normal appearing basilar artery. Flow within the posterior cerebral arteries is normal and symmetric. No aneurysms are seen. Left side dominant. NECK CT ANGIOGRAPHY: Carotid system: The great vessels demonstrate a conventional anatomy as they arise from the aortic arch. The origins of the common carotid arteries appear patent. The common carotid arteries demonstrate normal caliber and courses. The bifurcation regions are both widely patent. The internal carotid arteries demonstrate normal calibers and courses. Posterior circulation: The origins of the vertebral arteries both appear widely patent. The more superior extracranial portions of both vertebral arteries also demonstrate normal courses and calibers. They join to form a normal appearing basilar artery. Left side dominant. Soft tissues: Visualized neck soft tissues demonstrate no suspicious abnormalities. Bones: No suspicious bony lesions. Visualized cervical spine appears normally aligned. IMPRESSION: 1. Left temporal lobe intraparenchymal hemorrhage with blood products in the lateral ventricle and midline shift is unchanged. 2. No vascular aneurysm, stenosis, occlusion, or dissection identified Any quantitative measurements of stenosis were performed using NASCET criteria. Dictated by: Jacoby Gama M.D. on 09/29/2023 at 9:15 Approved by: Jacoby Gama M.D. on 09/29/2023 at 9:22 ECG Data Attestation: I personally reviewed and interpreted this ECG as follows: Interpretation: Sinus rhythm rate of 60 6p are 176 QRS of 92, QTC 434. Incomplete right bundle. No acute ST elevation. MDM Narrative Medical decision making narrative: 83-year-old male comes in quite hypertensive last known normal at 10:00 p.m.. Went directly to CT found a large a large intracranial bleed. Spoke with family about goals of care, he is no CPR they are unsure about intubation at this time but would like to pursue medical treatment. We did discuss dependent on patient's outcome might pursue withdrawal of care but states his quality of life is still quite good are agreeable for treatment and transfer. Patient is quite hypertensive with initial dose of labetalol while trying to figure out family's goals of care and then started narcotic pain drip. Patient's CBC, CMP, coags and troponin show no acute change. INR is 1.2 so plan for Kcentra 2000 units after discussion with inpatient pharmacy. Spoke with Neurology at [facility]: Discussed plan for blood pressure control, patient is on apixaban it vitamin K and Lavon would be appropriate for treatment. Spoke with Dr. Myers at [facility] accepts for transfer reviewed images. She is trying to pull these up she does agree with plan for nicardipine drip with goal systolic blood pressure 160 or less, can hold off on vitamin K but would give Lavon had Eliquis in the last 24-48 hours. Discussed patient's family does not want CPR they have been somewhat unsure about intubation but seemed to be okay with short term intubation and potential intervention. We did review severity of his illness and potential for . Plan for transfer via airlift. Spoke with patient's family they are agreeable with plan for transfer, short- term intubation as needed. Reviewed we will give Lavon he did have his apixaban last night before bed. Patient's and daughter are both at bedside. Patient recheck 1100am, on recheck patient when he falls asleep as does snore but family states that is normal. 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 End-tidal CO2 has not been rising and patient appears to still be maintaining airway. Did discuss with family if he is any worsening decompensation or airlift is uncomfortable intubate prior to transport. They acknowledge understand. Did ask for them to keep their cell phone close by so they can talk with the physician at [facility] after his arrival for consent and to discuss treatment plan. Stroke Core Measures Exclusion Criteria TPA in CVA: Unknown Onset of Symptoms Contraindications for TPA in CVA: Active Internal Bleeding or Acute Fx Critical Care Time Critical Care Time Critical Care Time: Yes Total Critical Care Time: 35 Attestation: The high probability of a clinically significant, sudden or life threatening deterioration of the [neuro] system(s) required my full and direct attention, intervention and personal management. The aggregate critical care time was [] minutes. This time is in addition to time spent performing reported procedures but includes the following: [x] Data Review and interpretation [x] Patient assessment and monitoring of vital signs [x] Documentation [x] Medication orders and management Discharge Plan Departure Patient Disposition: [facility] Clinical Impression: Intracranial hemorrhage Prescriptions: No Action tamsulosin [Flomax] 0.4 MG capsule,extended release 24hr 0.4 mg PO BEDTIME Qty: 0 tadalafil [Cialis] 20 MG tablet 20 mg PO DAILY PRN (Reason: Urinary Retention) Qty: 0 gabapentin 300 mg capsule 300 mg PO TID Qty: 240 1RF losartan 100 mg tablet 100 mg PO DAILY ropinirole 4 mg tablet extended release 24 hr 4 mg PO DAILY Patient Comments: takes in am atorvastatin 20 mg tablet 20 mg PO BEDTIME ascorbic acid (vitamin C) 500 mg capsule 500 mg PO DAILY cholecalciferol (vitamin D3) 50 mcg (2,000 unit) capsule 50 mcg PO DAILY ropinirole 2 mg tablet 2 mg PO BEDTIME Rx Instructions: administer 1-3 hours before bedtime carbidopa-levodopa 50-200 mg tablet extended release 1 tab PO 5XD Patient Comments: 5 times per day Rx Instructions: 0200, 0800, 1200, 1600, 2000 PROBIOTIC 1 tab PO DAILY docusate sodium [Colace] 100 mg capsule 100 mg PO DAILY PRN (Reason: Constipation) Eliquis 5 mg tablet 5 mg PO BID Patient Comments: take 1 tablet by mouth twice a day metoprolol succinate 25 mg tablet extended release 24 hr 25 mg PO DAILY spironolactone 25 mg tablet 25 mg PO DAILY Patient Comments: take 1 tablet by mouth once daily furosemide 20 mg tablet 20 mg PO ONCE PRN (Reason: edema) Patient Comments: take 1 tablet by mouth once daily if needed for WORSENING LEG EDEMA metoprolol succinate 50 mg tablet extended release 24 hr 50 mg PO DAILY rasagiline 0.5 mg tablet 0.5 mg PO DAILY rasagiline 1 mg tablet 1 mg PO DAILY Naltrex 4.5 mg capsule 4.5 mg PO .PRN Referrals: Jmaie Reynoso MD [Primary Care Provider] -
[2023-09-29 09:51] LABS: Add Manual Diff / Slide Review NO; Basophils Absolute Auto 0 /uL (0-100); Basophils Percent Auto 0.6 % (0-2); Eosinophils Absolute Auto 200 /uL (0-450); Eosinophils Percent Auto 1.9 % (2-4); Hematocrit 40.6 % (41-53); Hemoglobin 13.9 g/dL (13.5-17.5); Lymphocytes Absolute Auto 1600 /uL (1100-4500); Lymphocytes Percent Auto 20.2 % (25-40); Mean Corpuscular HGB Conc 34.3 % (30-36); Mean Corpuscular Hemoglobin 29.8 PG (26-34); Monocytes Absolute Auto 300 /uL (0-900); Monocytes Percent Auto 3.6 % (3-14); Neutrophils Absolute Auto 6000 /uL (1500-7000); Neutrophils Percent Auto 73.7 % (50-75); Platelet Count 297 X10^3/uL (150-400); Red Blood Cell Count 4.67 X10^6/uL (4.5-5.9); Red Cell Distribution Width 14.5 % (11.6-14.8); White Blood Cell Count 8.1 X10^3/uL (4.5-11.0)
[2023-09-29] MEDS: LABETALOL 20 MG/4 ML SYRINGE 10 MG IV (09:55)
[2023-09-29 10:00] LABS: INR 1.2 (0.9-1.3); Prothrombin Time 13.7 SECONDS (10.1-12.7)
[2023-09-29 10:03] LABS: PTT Partial Thromboplastin Tim 40 SECONDS (26-36)
[2023-09-29 10:04] LABS: Alanine Aminotransferase 5 IU/L (<50); Albumin 4.1 g/dL (3.5-5.0); Albumin Globulin Ratio 1.4 (1.0-2.8); Alkaline Phosphatase 49 U/L (38-126); Aspartate Aminotransferase 46 IU/L (17-59); BUN Creatinine Ratio 19.7 (6-22); Blood Urea Nitrogen 14 mg/dL (9-20); Calcium 9.3 mg/dL (8.4-10.2); Carbon Dioxide 28 mmol/L (22-32); Chloride 102 mmol/L (98-107); Creatine Kinase 110 U/L (55-170); Estimated Glomerular Filt Rate > 60 mL/min (>60); Glucose 127 mg/dL (80-110); HEMOLYSIS 24 (0-50); Magnesium 1.8 mg/dL (1.6-2.3); Potassium 3.9 mmol/L (3.4-5.1); Sodium 136 mmol/L (137-145); Total Protein 7.1 g/dL (6.3-8.2)
[2023-09-29] MEDS: NICARDIPINE 25 MG in SODIUM CHLORIDE 0.9% 240 ML 50 MG IV (10:12)
[2023-09-29 10:16] LABS: Troponin I < 0.012 ng/mL (0.01-0.034)
[2023-09-29] MEDS: PROTHROMBIN CPLX(PCC)4FACT 2,000 UNIT in ISOOSMOTIC VEHICLE 0 ML 473.544 UNIT IV (10:31)
[2023-09-29 10:54] LABS: UR Morphine/Opiate cutoff 300 Negative (Negative); Ur Creatinine Normal (Normal); Ur Specific Gravity Normal (Normal); Urine Amphetamines Negative (Negative); Urine Barbiturates Negative (Negative); Urine Benzodiazepines Negative (Negative); Urine Cocaine Negative (Negative); Urine MDMA Negative (Negative); Urine Methadone Negative (Negative); Urine Methamphetamines Negative (Negative); Urine Oxycodone Negative (Negative); Urine Phencyclidine Negative (Negative); Urine Tetrahydrocannabinol Negative (Negative); Urine Tricyclic Antidepressant Negative (Negative); Urine pH Normal (Normal)
--- NOTE | 2023-09-29 11:19 | PC.NURSE ---
report to airlift RN and medic team
== END 2023-09-29 11:31 | disposition short-term general hospital (02) ==
PROVIDERS: Emergency Provider Emergency Medicine; PCP Family Medicine
DX: I62.9 Nontraumatic intracranial hemorrhage, unspecified (principal); I10 Essential (primary) hypertension; Z79.01 Long term (current) use of anticoagulants
CPT/HCPCS: 36415; 70450; 70496; 70498; 71045; 80053; 80305; 82550; 83735; 84484; 85025; 85610; 85730; 93005; 93010; 96365; 96367; 96375; 99285; 99291; J7168